=== PATIENT | male | born 1965 | race Hispanic/Latino ===

== ENCOUNTER 2019-07-01 19:03 | Emergency (ER) | payer OTHER ==
[2019-07-01 19:19] LABS: BASOPHILS % (AUTO) 0.8 % (0.0-5.0); EOSINOPHILS % (AUTO) 2.5 % (0.0-8.0); HEMATOCRIT 41.7 % (42-54); MEAN CORPUSCULAR HEMOGLOBIN 32.9 pg (27.0-33.0); MEAN CORPUSCULAR HGB CONC 34.3 g/dL (32.0-36.0); MEAN CORPUSCULAR VOLUME 95.9 fL (79-99); MONOCYTES % (AUTO) 11.3 % (3.0-13.0); PLATELET COUNT (AUTO) 230 K/uL (130-400); RED BLOOD CELL COUNT(AUTO) 4.35 MIL/uL (4.50-6.20); RED CELL DISTRIBUTION WIDTH 13.1 % (11.0-15.5)
[2019-07-01 19:27] LABS: INR 0.85 (0.85-1.15); PARTIAL THROMBOPLASTIN TIME 27.7 SEC (26.3-35.5); PROTHROMBIN TIME 9.2 SEC (9.6-11.6)
[2019-07-01 19:30] LABS: CARBON DIOXIDE 26 mmol/L (21-32); CHLORIDE 98 mmol/L (101-111); CREATININE 0.9 mg/dL (0.5-1.5); GLOMERULAR FILTR. RATE CALC 95 mL/min (>60); GLUCOSE,RANDOM 100 mg/dL (70-105); POTASSIUM 3.7 mmol/L (3.5-5.1); SODIUM SERUM 135 mmol/L (136-145); UREA NITROGEN, BLOOD 9 mg/dL (7-18)
[2019-07-01 19:40] LABS: APPEARANCE,URINE Clear (CLEAR); BILIRUBIN,URINE Negative (NEGATIVE); COLOR,URINE Yellow (YELLOW); GLUCOSE, URINE (UA) Negative (NEGATIVE); KETONES,URINE Negative (NEGATIVE); LEUKOCYTE ESTERASE ,URINE Negative (NEGATIVE); NITRATE,URINE Negative (NEGATIVE); OCCULT BLOOD,URINE Negative (NEGATIVE); PROTEIN,URINE Negative (NEGATIVE); UROBILINOGEN,URINE 0.2 mg/dL (0.2-1.0)
[2019-07-01 19:41] LABS: ALANINE AMINOTRANSFERASE 108 U/L (12-78); ALBUMIN 4.2 g/dL (3.5-5.0); AMMONIA < 3 umol/L (11-32); ASPARTATE AMINOTRANSFERASE 106 U/L (10-37); BILIRUBIN,TOTAL 0.2 mg/dL (0.2-1.0); TOTAL PROTEIN, SERUM 7.7 g/dL (6.0-8.3)
[2019-07-01 19:44] LABS: ALCOHOL, BLOOD 322 mg/dL (0-10); CREATINE KINASE, TOTAL 539 U/L (21-232)
[2019-07-01 19:48] LABS: AMPHET/METH SCREEN,URINE NEGATIVE (NEGATIVE); BARBITURATE SCREEN, URINE NEGATIVE (NEGATIVE); BENZODIAZEPINES SCREEN,URINE NEGATIVE (NEGATIVE); CANNABINOID SCREEN,URINE NEGATIVE (NEGATIVE); COCAINE SCREEN,URINE NEGATIVE (NEGATIVE); OPIATE SCREEN,URINE NEGATIVE (NEGATIVE); PHENCYCLIDINE SCREEN,URINE NEGATIVE (NEGATIVE)
== END 2019-07-01 20:01 | disposition left against medical advice (07) ==
LOC: EDH 19:03
DX: G45.9 Transient cerebral ischemic attack, unspecified (principal); F10.10 Alcohol abuse, uncomplicated; R03.0 Elevated blood-pressure reading, without diagnosis of hypertension; Z72.0 Tobacco use; Z79.899 Other long term (current) drug therapy
CPT/HCPCS: 36415; 70450; 71045; 80053; 80305; 81003; 82140; 82550; 83721; 84484; 85025; 85610; 85730; 93005; 99291; G0480

== ENCOUNTER 2021-05-31 09:52 | Inpatient (IN) | payer OTHER ==
[~2021-05-31] VITALS: Ht 170.2 cm; Wt 80.6 kg
[2021-05-31 10:15] LABS: BASOPHILS % (AUTO) 0.3 % (0.0-5.0); EOSINOPHILS % (AUTO) 0.3 % (0.0-8.0); HEMATOCRIT 39.5 % (42-54); LYMPHOCYTES % (AUTO) 9.9 % (21.0-51.0); MEAN CORPUSCULAR HEMOGLOBIN 34.3 pg (27.0-33.0); MEAN CORPUSCULAR HGB CONC 37.5 g/dL (32.0-36.0); MEAN CORPUSCULAR VOLUME 91.6 fL (79-99); MONOCYTES % (AUTO) 5.1 % (3.0-13.0); NEUTROPHILS % (AUTO) 83.7 % (40.0-77.0); PLATELET COUNT (AUTO) 280 K/uL (130-400); RED BLOOD CELL COUNT(AUTO) 4.31 MIL/uL (4.50-6.20); RED CELL DISTRIBUTION WIDTH 12.4 % (11.0-15.5); WHITE BLOOD COUNT (AUTO) 14.9 K/uL (4.8-10.8)
[2021-05-31 10:27] LABS: POTASSIUM 4.7 mmol/L (3.5-5.1)
[2021-05-31 10:28] LABS: INR 0.94 (0.85-1.15); PROTHROMBIN TIME 10.3 SEC (9.6-11.6)
[2021-05-31 10:29] LABS: PARTIAL THROMBOPLASTIN TIME 26.7 SEC (26.3-35.5)
[2021-05-31 10:32] LABS: ALBUMIN 2.7 g/dL (3.5-5.0); BILIRUBIN,TOTAL 1.3 mg/dL (0.2-1.0)
[2021-05-31] MEDS ORDERED: ONDANSETRON 4MG INJ IVP SCH (11:00)
[2021-05-31] MEDS ORDERED: MORPHINE 4 MG SYG IVP SCH (11:00)
[2021-05-31] MEDS ORDERED: 0.9%NACL 1000ML 1,000 ML IV SCH ×4 (11:00→20:30)
[2021-05-31 11:59] LABS: CREATININE 0.8 mg/dL (0.5-1.5); TOTAL PROTEIN, SERUM 8.2 g/dL (6.0-8.3)
[2021-05-31] MEDS ORDERED: KETOROLAC 30MG VIAL (30MG/ML) IVP ONE (12:30)
[2021-05-31] MEDS ORDERED: LACTATED RINGERS 1000ML 1,000 ML IV SCH (14:00)
[2021-05-31] MEDS: ZOSYN 3.375GM +NS 50ML IV SCH ×2 (14:14→21:37)
[2021-05-31 14:43] LABS: THYROID STIMULATING HORMONE 1.32 uIU/mL (0.36-3.74)
[2021-05-31 14:44] LABS: ALCOHOL, BLOOD < 3 mg/dL (0-10)
[2021-05-31 15:58] LABS: CHOLESTEROL 391 mg/dL (<200); HDL CHOLESTEROL 26 mg/dL (29-71); LDL DIRECT 100 mg/dL (0-99)
[2021-05-31 16:29] LABS: TRIGLYCERIDES 2965 mg/dL (30-200)
[2021-05-31] MEDS ORDERED: MORPHINE 2 MG SYG IVP PRN ×2 (16:30→19:00)
[2021-05-31] MEDS ORDERED: KETOROLAC 15MG/ML VIAL (15MG/ML) IV PRN (16:30)
[2021-05-31 17:03] LABS: HEMATOCRIT 37.2 % (42-54)
[2021-05-31 17:50] LABS: CREATININE 0.8 mg/dL (0.5-1.5); POTASSIUM 4.1 mmol/L (3.5-5.1)
[2021-05-31] MEDS ORDERED: POTASSIUM CHLORIDE 10% ELIXIR 20 MEQ/15 ML UDCUP PO PRN (18:30)
[2021-05-31] MEDS ORDERED: KCL 20 MEQ ERTAB PO PRN (18:30)
[2021-05-31] MEDS ORDERED: PHARMACY COMMUNICATION MISC SCH ×2 (18:30→19:00)
[2021-05-31] MEDS ORDERED: [UNRECOGNIZED DRUG - OTHER] IV SCH ×2 (18:30)
[2021-05-31] MEDS ORDERED: DEXTROSE 5 % AND 0.9 % NACL 1,000 ML IV SCH (18:30)
[2021-05-31] MEDS ORDERED: SODIUM CHLORIDE IV SCH ×2 (18:30)
[2021-05-31] MEDS ORDERED: INSULIN REGULAR, HUMAN 3ML 100 UNIT in 0.9%NACL 100ML 99 ML IV PRN ×2 (19:00)
[2021-05-31] MEDS ORDERED: HYDRALAZINE 20MG/ML VIAL IV PRN (19:00)
[2021-05-31] MEDS ORDERED: DOCUSATE SODIUM 100 MG CAP PO PRN ×2 (19:00)
[2021-05-31] MEDS ORDERED: ACETAMINOPHEN 650 MG SUPPOSITORY RC PRN (19:00)
[2021-05-31] MEDS ORDERED: ACETAMINOPHEN 325 MG TAB PO PRN (19:00)
[2021-05-31] MEDS ORDERED: LACTULOSE 20 GM/30 ML UDCUP PO PRN (19:00)
[2021-05-31] MEDS ORDERED: ALBUTEROL 0.083% 2.5 MG/3 ML INH IH PRN (19:00)
[2021-05-31] MEDS ORDERED: ONDANSETRON 4MG INJ IVP PRN (19:00)
[2021-05-31] MEDS ORDERED: GLUCAGON 1MG KIT 1 MG ML IM PRN (19:00)
[2021-05-31 20:10] LABS: CREATININE 0.8 mg/dL (0.5-1.5); POTASSIUM 3.8 mmol/L (3.5-5.1)
[2021-05-31] MEDS ORDERED: POTASSIUM CHLORIDE 10MEQ/100ML 100 ML IV PRN (20:30)
[2021-05-31] MEDS ORDERED: DEXTROSE 5 %-0.45 % NACL 1,000 ML IV PRN (20:30)
[2021-05-31] MEDS ORDERED: INSULIN REGULAR, HUMAN 3ML 100 UNIT in 0.9%NACL 100ML 99 ML IV SCH ×2 (20:30)
[2021-05-31] MEDS ORDERED: NIACIN 500 MG SRTAB PO SCH (21:00)
[2021-05-31] MEDS ORDERED: SODIUM CL 4MEQ/ML 30ML 154 MEQ in DEXTROSE 10%-WATER 961.5 ML IV SCH (21:00)
[2021-05-31] MEDS ORDERED: 0.9%NACL 50ML 50 ML IV ONE (21:29)
[2021-05-31] MEDS: PANTOPRAZOLE 40 MG/VIAL IVP SCH (21:37)
[2021-05-31] MEDS: ATORVASTATIN 40 MG TABLET PO SCH (21:37)
[2021-06-01] VITALS (29 sets, daily range): BP systolic 118–150; BP diastolic 61–86
[2021-06-01] MEDS: POTASSIUM CHLORIDE 20MEQ/100ML 100 ML IV PRN ×2 (00:26→03:08)
[2021-06-01 00:37] LABS: CREATININE 0.9 mg/dL (0.5-1.5); MAGNESIUM 2.3 mg/dL (1.80-2.40); POTASSIUM 3.1 mmol/L (3.5-5.1)
[2021-06-01] MEDS: ZOSYN 3.375GM +NS 50ML IV SCH ×3 (06:08→22:00)
[2021-06-01 06:16] LABS: HEMATOCRIT 38.2 % (42-54); MEAN CORPUSCULAR HEMOGLOBIN 32.3 pg (27.0-33.0); MEAN CORPUSCULAR HGB CONC 34.3 g/dL (32.0-36.0); MEAN CORPUSCULAR VOLUME 94.1 fL (79-99); RED BLOOD CELL COUNT(AUTO) 4.06 MIL/uL (4.50-6.20); RED CELL DISTRIBUTION WIDTH 12.8 % (11.0-15.5); WHITE BLOOD COUNT (AUTO) 12.2 K/uL (4.8-10.8)
[2021-06-01 06:38] LABS: INR 0.97 (0.85-1.15); PROTHROMBIN TIME 10.6 SEC (9.6-11.6)
[2021-06-01 06:40] LABS: CREATININE 0.9 mg/dL (0.5-1.5); MAGNESIUM 1.9 mg/dL (1.80-2.40); PHOSPHORUS 2.9 mg/dL (2.5-4.9); POTASSIUM 3.6 mmol/L (3.5-5.1)
[2021-06-01] MEDS ORDERED: GEMFIBROZIL 600 MG TABLET PO SCH (07:30)
[2021-06-01] MEDS ORDERED: MAGNESIUM 2GM PREMIX 50ML 50 ML IV ONE (07:50)
[2021-06-01] MEDS ORDERED: ENOXAPARIN SODIUM 40 MG/0.4 ML SYRINGE SQ SCH (09:00)
[2021-06-01] MEDS ORDERED: FISH OIL 1000 MG/CAP PO SCH (09:00)
[2021-06-01] MEDS: CYANOCOBALAMIN (VITAMIN B-12) 100 MCG TABLET PO SCH (09:00)
[2021-06-01] MEDS: FOLIC ACID 1 MG TABLET PO SCH (09:00)
[2021-06-01 09:13] LABS: ALBUMIN 2.5 g/dL (3.5-5.0); BILIRUBIN,DIRECT 0.1 mg/dL (0.0-0.3); BILIRUBIN,TOTAL 0.5 mg/dL (0.2-1.0); TOTAL PROTEIN, SERUM 6.8 g/dL (6.0-8.3)
[2021-06-01] MEDS ORDERED: MAGNESIUM OXIDE 400 MG TABLET PO SCH (09:30)
[2021-06-01] MEDS ORDERED: KCL 20 MEQ ERTAB PO SCH (09:30)
[2021-06-01] MEDS ORDERED: CHLORDIAZEPOXIDE HCL 25 MG CAP PO PRN (11:30)
[2021-06-01] MEDS ORDERED: THIAMINE HCL 100 MG/ML 2ML VIAL IVP SCH (11:30)
[2021-06-01] MEDS ORDERED: PHARMACY COMMUNICATION MISC PRN (11:30)
[2021-06-01] MEDS ORDERED: LORAZEPAM 2 MG/ML 1 ML VIAL IVP PRN (11:30)
[2021-06-01 12:10] LABS: CREATININE 0.8 mg/dL (0.5-1.5); MAGNESIUM 2.7 mg/dL (1.80-2.40); POTASSIUM 3.3 mmol/L (3.5-5.1)
[2021-06-01 14:15] LABS: CHOLESTEROL 259 mg/dL (<200); HDL CHOLESTEROL 39 mg/dL (29-71); LDL DIRECT 74 mg/dL (0-99); TRIGLYCERIDES 519 mg/dL (30-200)
[2021-06-01 18:07] LABS: MAGNESIUM 2.5 mg/dL (1.80-2.40)
[2021-06-01] MEDS ORDERED: 0.9%NACL 50ML 50 ML IV ONE (19:25)
[2021-06-01] MEDS: PANTOPRAZOLE 40 MG/VIAL IVP SCH ×2 (19:46→21:00)
[2021-06-01] MEDS: FISH OIL 1000 MG/CAP PO SCH ×2 (19:47→21:00)
[2021-06-01] MEDS: ATORVASTATIN 40 MG TABLET PO SCH (20:48)
[2021-06-01 22:19] LABS: APPEARANCE,URINE Clear (CLEAR); BILIRUBIN,URINE Negative (NEGATIVE); COLOR,URINE Yellow (YELLOW); GLUCOSE, URINE (UA) Negative (NEGATIVE); KETONES,URINE >=80 mg/dL (NEGATIVE); LEUKOCYTE ESTERASE ,URINE Negative (NEGATIVE); NITRATE,URINE Negative (NEGATIVE); OCCULT BLOOD,URINE Negative (NEGATIVE); PROTEIN,URINE Negative (NEGATIVE); UROBILINOGEN,URINE 0.2 mg/dL (0.2-1.0)
[2021-06-01 22:25] LABS: AMPHET/METH SCREEN,URINE NEGATIVE (NEGATIVE); BARBITURATE SCREEN, URINE NEGATIVE (NEGATIVE); BENZODIAZEPINES SCREEN,URINE NEGATIVE (NEGATIVE); CANNABINOID SCREEN,URINE NEGATIVE (NEGATIVE); COCAINE SCREEN,URINE NEGATIVE (NEGATIVE); OPIATE SCREEN,URINE NEGATIVE (NEGATIVE); PHENCYCLIDINE SCREEN,URINE NEGATIVE (NEGATIVE); SODIUM,URINE RANDOM 209 mmol/l (40-220)
[2021-06-02] VITALS (13 sets, daily range): BP systolic 118–165; BP diastolic 62–85
[2021-06-02] MEDS: ZOSYN 3.375GM +NS 50ML IV SCH ×3 (06:00→22:18)
[2021-06-02 06:06] LABS: BASOPHILS % (AUTO) 0.5 % (0.0-5.0); EOSINOPHILS % (AUTO) 2.9 % (0.0-8.0); HEMATOCRIT 38.9 % (42-54); LYMPHOCYTES % (AUTO) 23.1 % (21.0-51.0); MEAN CORPUSCULAR HEMOGLOBIN 31.8 pg (27.0-33.0); MEAN CORPUSCULAR HGB CONC 32.6 g/dL (32.0-36.0); MEAN CORPUSCULAR VOLUME 97.5 fL (79-99); MONOCYTES % (AUTO) 6.8 % (3.0-13.0); NEUTROPHILS % (AUTO) 66.2 % (40.0-77.0); PLATELET COUNT (AUTO) 218 K/uL (130-400); RED BLOOD CELL COUNT(AUTO) 3.99 MIL/uL (4.50-6.20); RED CELL DISTRIBUTION WIDTH 12.9 % (11.0-15.5); WHITE BLOOD COUNT (AUTO) 10.1 K/uL (4.8-10.8)
[2021-06-02 06:15] LABS: ALBUMIN 2.5 g/dL (3.5-5.0); BILIRUBIN,TOTAL 0.5 mg/dL (0.2-1.0); CREATININE 0.9 mg/dL (0.5-1.5); POTASSIUM 3.8 mmol/L (3.5-5.1); TOTAL PROTEIN, SERUM 6.9 g/dL (6.0-8.3)
[2021-06-02] MEDS: PANTOPRAZOLE 40 MG/VIAL IVP SCH ×2 (08:25→20:00)
[2021-06-02] MEDS: FOLIC ACID 1 MG TABLET PO SCH (08:25)
[2021-06-02] MEDS: FISH OIL 1000 MG/CAP PO SCH ×2 (08:25→20:02)
[2021-06-02] MEDS: CYANOCOBALAMIN (VITAMIN B-12) 100 MCG TABLET PO SCH (08:26)
[2021-06-02] MEDS: LACTATED RINGERS 1000ML 1,000 ML IV SCH ×2 (09:19→16:17)
[2021-06-02] MEDS: ATORVASTATIN 40 MG TABLET PO SCH (20:00)
[2021-06-03 04:29] VITALS: BP 131/73
[2021-06-03 05:03] LABS: BASOPHILS % (AUTO) 0.6 % (0.0-5.0); EOSINOPHILS % (AUTO) 4.2 % (0.0-8.0); HEMATOCRIT 38.2 % (42-54); LYMPHOCYTES % (AUTO) 32.4 % (21.0-51.0); MEAN CORPUSCULAR HEMOGLOBIN 32.8 pg (27.0-33.0); MEAN CORPUSCULAR HGB CONC 34.6 g/dL (32.0-36.0); MEAN CORPUSCULAR VOLUME 94.8 fL (79-99); MONOCYTES % (AUTO) 9.6 % (3.0-13.0); NEUTROPHILS % (AUTO) 52.8 % (40.0-77.0); PLATELET COUNT (AUTO) 247 K/uL (130-400); RED BLOOD CELL COUNT(AUTO) 4.03 MIL/uL (4.50-6.20); RED CELL DISTRIBUTION WIDTH 12.7 % (11.0-15.5); WHITE BLOOD COUNT (AUTO) 6.7 K/uL (4.8-10.8)
[2021-06-03 05:17] LABS: POTASSIUM 3.4 mmol/L (3.5-5.1)
[2021-06-03] MEDS: ZOSYN 3.375GM +NS 50ML IV SCH (05:36)
[2021-06-03] MEDS: CYANOCOBALAMIN (VITAMIN B-12) 100 MCG TABLET PO SCH (08:40)
[2021-06-03] MEDS: FISH OIL 1000 MG/CAP PO SCH (08:41)
[2021-06-03] MEDS: PANTOPRAZOLE 40 MG/VIAL IVP SCH (08:41)
[2021-06-03] MEDS: FOLIC ACID 1 MG TABLET PO SCH (08:43)
[2021-06-03 09:06] VITALS: BP 127/75
[2021-06-03] MEDS ORDERED: FENO145T PO (09:11)
[2021-06-03] MEDS ORDERED: OMEG-148 PO (09:11)
[2021-06-03] MEDS ORDERED: ATOR40TA69 PO (09:11)
== END 2021-06-03 13:04 | disposition home or self-care (01) | DRG 439 ==
LOC: EDH 09:52 → EDHIP 09:53 → 2CH 23:45 → 3AH 06-02 22:22
PROVIDERS: ADMIT Internal Medicine; ATTEND Internal Medicine
DX: K85.90 Acute pancreatitis without necrosis or infection, unspecified (principal); E87.1 Hypo-osmolality and hyponatremia; E78.1 Pure hyperglyceridemia; E11.9 Type 2 diabetes mellitus without complications; Z79.899 Other long term (current) drug therapy; K29.80 Duodenitis without bleeding; E88.09 Other disorders of plasma-protein metabolism, not elsewhere classified; F17.210 Nicotine dependence, cigarettes, uncomplicated; E78.00 Pure hypercholesterolemia, unspecified; R20.2 Paresthesia of skin; R74.01 Elevation of levels of liver transaminase levels; F12.90 Cannabis use, unspecified, uncomplicated
CPT/HCPCS: 36415; 70450; 71045; 74177; 74181; 76705; 80048; 80053; 80061; 80076; 80305; 81003; 82140; 82150; 82270; 82550; 82607; 82746; 82948; 83036; 83605; 83615; 83690; 83735; 83930; 84100; 84145; 84300; 84443; 84484; 85014; 85018; 85025; 85027; 85610; 85730; 86850; 86900; 86901; 87338; 93005; C9113; G0378; J1815; J1885; J2270; J2405; J2543; J3411; J3475; J3480; J3490; J7030; J7042; J7120; J7131

== ENCOUNTER 2021-11-03 12:55 | Emergency (ER) | payer OTHER ==
[~2021-11-03] VITALS: Ht 170.2 cm; Wt 86.2 kg
[~2021-11-03 12:55] MED LIST: ATOR40TA69 PO; FENO145T PO; OMEG-148 PO
[2021-11-03 13:40] LABS: BASOPHILS % (AUTO) 0.9 % (0.0-5.0); EOSINOPHILS % (AUTO) 0.7 % (0.0-8.0); HEMATOCRIT 44.5 % (42-54); LYMPHOCYTES % (AUTO) 25.8 % (21.0-51.0); MEAN CORPUSCULAR HGB CONC 35.3 g/dL (32.0-36.0); MEAN CORPUSCULAR VOLUME 93.5 fL (79-99); MONOCYTES % (AUTO) 10.6 % (3.0-13.0); NEUTROPHILS % (AUTO) 61.7 % (40.0-77.0); PLATELET COUNT (AUTO) 283 K/uL (130-400); RED BLOOD CELL COUNT(AUTO) 4.76 MIL/uL (4.50-6.20); RED CELL DISTRIBUTION WIDTH 13.2 % (11.0-15.5); WHITE BLOOD COUNT (AUTO) 6.9 K/uL (4.8-10.8)
[2021-11-03 13:41] LABS: APPEARANCE,URINE CLEAR (CLEAR); BILIRUBIN,URINE NEGATIVE (NEGATIVE); COLOR,URINE YELLOW (YELLOW); GLUCOSE, URINE (UA) NEGATIVE (NEGATIVE); KETONES,URINE NEGATIVE (NEGATIVE); LEUKOCYTE ESTERASE ,URINE NEGATIVE Leu/uL (NEGATIVE); NITRATE,URINE NEGATIVE (NEGATIVE); OCCULT BLOOD,URINE TRACE-INTACT (NEGATIVE); PROTEIN,URINE NEGATIVE (NEGATIVE); UROBILINOGEN,URINE 0.2 mg/dL (0.2-1.0)
[2021-11-03 13:47] LABS: CREATININE 1.2 mg/dL (0.5-1.5); POTASSIUM 3.9 mmol/L (3.5-5.1)
[2021-11-03 13:56] LABS: ALBUMIN 3.9 g/dL (3.5-5.0); TOTAL PROTEIN, SERUM 8.1 g/dL (6.0-8.3)
[2021-11-03 14:07] LABS: BACTERIA,URINE Rare /HPF (None Seen); RBC,URINE None Seen /HPF (0-1); WBC,URINE None Seen /HPF (0-1)
[2021-11-03] MEDS ORDERED: ONDANSETRON 4MG INJ ONE (14:51)
[2021-11-03] MEDS ORDERED: 0.9%NACL 1000ML 1,000 ML IV ONE ×2 (14:52→15:00)
[2021-11-03] MEDS ORDERED: MORPHINE 4 MG SYG ONE (14:52)
[2021-11-03] MEDS ORDERED: ONDANSETRON 4MG INJ IVP ONE (15:00)
[2021-11-03] MEDS ORDERED: MORPHINE 4 MG SYG IVP ONE (15:00)
[2021-11-03] MEDS ORDERED: IOHEXOL 350 MG/ML 100ML INFUS..BTL IV ONE (15:56)
[2021-11-03] MEDS ORDERED: DiphenhydrAMINE HCL 50 MG/ML VIAL ONE (15:57)
[2021-11-03 16:53] VITALS: BP 140/79
== END 2021-11-03 17:03 | disposition home or self-care (01) ==
LOC: EDH 12:55
DX: R10.31 Right lower quadrant pain (principal); R10.33 Periumbilical pain; L29.9 Pruritus, unspecified
CPT/HCPCS: 99285; 74177; 96374; 96361; 96375; 84484; 80053; 83690; 85025; 81001; 36415; 93005; J7030; J2405; J2270; Q9967; J1200

== ENCOUNTER 2022-08-14 18:10 | Emergency (ER) | payer OTHER, SELFPAY ==
[~2022-08-14] VITALS: Ht 165.1 cm; Wt 74.8 kg
[2022-08-14 18:45] LABS: BASOPHILS % (AUTO) 0.9 % (0.0-5.0); EOSINOPHILS % (AUTO) 2.1 % (0.0-8.0); HEMATOCRIT 39.9 % (42-54); LYMPHOCYTES % (AUTO) 50.8 % (21.0-51.0); MEAN CORPUSCULAR HEMOGLOBIN 33.6 pg (27.0-33.0); MEAN CORPUSCULAR HGB CONC 36.1 g/dL (32.0-36.0); MEAN CORPUSCULAR VOLUME 93.2 fL (79-99); MONOCYTES % (AUTO) 7.4 % (3.0-13.0); NEUTROPHILS % (AUTO) 38.6 % (40.0-77.0); PLATELET COUNT (AUTO) 156 K/uL (130-400); RED BLOOD CELL COUNT(AUTO) 4.28 MIL/uL (4.50-6.20); WHITE BLOOD COUNT (AUTO) 4.4 K/uL (4.8-10.8)
[2022-08-14 19:26] LABS: POTASSIUM 3.3 mmol/L (3.5-5.1)
[2022-08-14 19:30] LABS: ALBUMIN 3.1 g/dL (3.5-5.0)
[2022-08-14] MEDS ORDERED: IPRATROPIUM/ALBUTEROL SULFATE 3 ML SOLUTION IH ONE (19:30)
[2022-08-14 20:00] LABS: B-TYPE NATRIURETIC PEPTIDE 17 pg/mL (0-100)
[2022-08-14 20:32] LABS: TOTAL PROTEIN, SERUM 7.4 g/dL (6.0-8.3)
[2022-08-14 21:24] LABS: ABG BASE EXCESS -5.9 mmol/L (-2.0-3.0); ABG HCO3 18.9 mmol/L (21.0-28.0); ABG OXYGEN SATURATION 96.5 % (95.0-99.0); ABG PCO2 35 mmHg (35-48)
[2022-08-14 21:30] VITALS: BP 145/60
[2022-08-14] MEDS ORDERED: ALBU90AE2 IH (21:37)
== END 2022-08-14 21:44 | disposition home or self-care (01) ==
LOC: EDH 18:10
DX: F10.129 Alcohol abuse with intoxication, unspecified (principal); F17.200 Nicotine dependence, unspecified, uncomplicated; F41.9 Anxiety disorder, unspecified; Z79.899 Other long term (current) drug therapy
CPT/HCPCS: 36415; 36600; 71045; 80053; 82140; 82435; 82803; 82947; 83605; 83735; 83880; 84132; 84295; 84484; 85018; 85025; 93005; 94640

== ENCOUNTER 2022-08-22 10:14 | Inpatient (IN) | payer OTHER ==
[~2022-08-22] VITALS: Ht 170.2 cm; Wt 79.8 kg
[~2022-08-22 10:14] MED LIST changes: +ALBU90AE2 IH
[2022-08-22 10:43] LABS: BASOPHILS % (AUTO) 0.5 % (0.0-5.0); EOSINOPHILS % (AUTO) 0.2 % (0.0-8.0); HEMATOCRIT 43.4 % (42-54); LYMPHOCYTES % (AUTO) 12.3 % (21.0-51.0); MEAN CORPUSCULAR HEMOGLOBIN 35.9 pg (27.0-33.0); MEAN CORPUSCULAR HGB CONC 37.6 g/dL (32.0-36.0); MEAN CORPUSCULAR VOLUME 95.6 fL (79-99); MONOCYTES % (AUTO) 5.3 % (3.0-13.0); NEUTROPHILS % (AUTO) 81.3 % (40.0-77.0); PLATELET COUNT (AUTO) 172 K/uL (130-400); RED BLOOD CELL COUNT(AUTO) 4.54 MIL/uL (4.50-6.20); WHITE BLOOD COUNT (AUTO) 12.4 K/uL (4.8-10.8)
[2022-08-22 11:50] LABS: APPEARANCE,URINE CLEAR (CLEAR); BILIRUBIN,URINE NEGATIVE (NEGATIVE); COLOR,URINE YELLOW (YELLOW); GLUCOSE, URINE (UA) NEGATIVE (NEGATIVE); KETONES,URINE NEGATIVE (NEGATIVE); LEUKOCYTE ESTERASE ,URINE NEGATIVE Leu/uL (NEGATIVE); NITRATE,URINE NEGATIVE (NEGATIVE); OCCULT BLOOD,URINE NEGATIVE (NEGATIVE); PH,URINE 5.5 (5.0-8.0); PROTEIN,URINE 10 mg/dL (NEGATIVE); UROBILINOGEN,URINE 0.2 mg/dL (0.2-1.0)
[2022-08-22 11:58] LABS: ALBUMIN 3.1 g/dL (3.5-5.0); POTASSIUM 4.1 mmol/L (3.5-5.1); TOTAL PROTEIN, SERUM 8.1 g/dL (6.0-8.3)
[2022-08-22 12:23] LABS: MUCUS,URINE RARE LPF (None Seen); RBC,URINE 0-1 /HPF (0-1); SQUAMOUS EPITHELIAL CELL,UR RARE /HPF (0-2)
[2022-08-22] MEDS ORDERED: MORPHINE 4 MG SYG IVP ONE (12:30)
[2022-08-22] MEDS ORDERED: ONDANSETRON 4MG INJ IVP ONE (12:30)
[2022-08-22] MEDS ORDERED: 0.9%NACL 1000ML 1,000 ML IV ONE (12:30)
[2022-08-22 13:23] LABS: MAGNESIUM 2.1 mg/dL (1.80-2.40)
[2022-08-22] MEDS ORDERED: KETOROLAC 15MG/ML VIAL (15MG/ML) IV PRN (14:00)
[2022-08-22] MEDS ORDERED: 0.9%NACL 1000ML 1,000 ML IV SCH (14:00)
[2022-08-22 14:36] LABS: PARTIAL THROMBOPLASTIN TIME 29.8 SEC (26.3-35.5)
[2022-08-22 14:44] LABS: INR 0.93 (0.85-1.15)
[2022-08-22 14:45] LABS: PROTHROMBIN TIME 10.5 SEC (9.6-11.6)
[2022-08-22 14:46] LABS: HDL CHOLESTEROL 42 mg/dL (29-71); LDL DIRECT 128 mg/dL (0-99)
[2022-08-22 15:00] LABS: CHOLESTEROL 555 mg/dL (<200); TRIGLYCERIDES 4981 mg/dL (30-200)
[2022-08-22] MEDS ORDERED: POTASSIUM CHLORIDE 20MEQ/100ML 100 ML IV PRN (15:30)
[2022-08-22] MEDS ORDERED: INSULIN REGULAR, HUMAN 3ML 100 UNIT in 0.9%NACL 100ML 99 ML IV PRN ×2 (15:30)
[2022-08-22] MEDS: DEXTROSE 5 % AND 0.9 % NACL 1,000 ML IV SCH ×2 (15:53→23:15)
[2022-08-22 16:11] LABS: POTASSIUM 3.7 mmol/L (3.5-5.1); THYROID STIMULATING HORMONE 1.57 uIU/mL (0.36-3.74)
[2022-08-22 16:28] LABS: URIC ACID 6.2 mg/dL (2.6-7.2)
[2022-08-22 16:49] LABS: CREATININE 0.9 mg/dL (0.5-1.5)
[2022-08-22 17:21] LABS: AMPHET/METH SCREEN,URINE NEGATIVE (NEGATIVE); BARBITURATE SCREEN, URINE NEGATIVE (NEGATIVE); BENZODIAZEPINES SCREEN,URINE NEGATIVE (NEGATIVE); CANNABINOID SCREEN,URINE NEGATIVE (NEGATIVE); COCAINE SCREEN,URINE NEGATIVE (NEGATIVE); CREATININE,URINE RANDOM 288 mg/dL (30-135); OPIATE SCREEN,URINE NEGATIVE (NEGATIVE); PHENCYCLIDINE SCREEN,URINE NEGATIVE (NEGATIVE); SODIUM,URINE RANDOM 43 mmol/l (40-220)
[2022-08-22] MEDS ORDERED: LORAZEPAM 2 MG/ML 1 ML VIAL IVP PRN (18:00)
[2022-08-22] MEDS ORDERED: INSULIN HUMULIN R 100 UNIT/ML 3ML SQ SCH (18:00)
[2022-08-22] MEDS ORDERED: CHLORDIAZEPOXIDE HCL 25 MG CAP PO PRN (18:00)
[2022-08-22] MEDS ORDERED: PHARMACY COMMUNICATION MISC PRN (18:00)
[2022-08-22] MEDS: MORPHINE 2 MG SYG IVP PRN (18:57)
[2022-08-22 20:13] LABS: CREATININE 0.8 mg/dL (0.5-1.5); POTASSIUM 3.3 mmol/L (3.5-5.1)
[2022-08-22 20:34] LABS: HEMOGLOBIN A1C 5.3 % (4.0-6.0)
[2022-08-22] MEDS: ZOSYN 3.375GM +NS 50ML IVPB SCH (20:51)
[2022-08-22] MEDS ORDERED: 0.9%NACL 50ML IV SCH (21:00)
[2022-08-23 03:18] LABS: BASOPHILS % (AUTO) 0.2 % (0.0-5.0); EOSINOPHILS % (AUTO) 1.4 % (0.0-8.0); LYMPHOCYTES % (AUTO) 15.6 % (21.0-51.0); MEAN CORPUSCULAR HEMOGLOBIN 33.3 pg (27.0-33.0); MEAN CORPUSCULAR HGB CONC 34.7 g/dL (32.0-36.0); MONOCYTES % (AUTO) 6.3 % (3.0-13.0); NEUTROPHILS % (AUTO) 75.9 % (40.0-77.0); PLATELET COUNT (AUTO) 139 K/uL (130-400); RED BLOOD CELL COUNT(AUTO) 3.96 MIL/uL (4.50-6.20); WHITE BLOOD COUNT (AUTO) 8.7 K/uL (4.8-10.8)
[2022-08-23 03:45] LABS: CREATININE 0.8 mg/dL (0.5-1.5)
[2022-08-23] MEDS: ZOSYN 3.375GM +NS 50ML IVPB SCH ×3 (04:49→20:33)
[2022-08-23] MEDS: DEXTROSE 5 % AND 0.9 % NACL 1,000 ML IV SCH (05:15)
[2022-08-23] MEDS ORDERED: DEXTROSE 50%-WATER 50 ML DISP.SYRIN IV PRN ×2 (05:30→13:00)
[2022-08-23] MEDS ORDERED: GLUCAGON 1MG KIT 1 MG ML IM PRN ×2 (05:30→13:00)
[2022-08-23] MEDS ORDERED: D5 NS WITH 20 mEq KCl 1000ML IV SCH (08:00)
[2022-08-23 08:33] LABS: CREATININE 0.7 mg/dL (0.5-1.5); POTASSIUM 3.6 mmol/L (3.5-5.1)
[2022-08-23] MEDS ORDERED: MORPHINE 4 MG SYG IVP PRN (09:00)
[2022-08-23] MEDS: FENOFIBRATE NANOCRYSTALLIZED 145 MG TAB PO SCH (09:21)
[2022-08-23] MEDS: FOLIC ACID 5 MG/ML VIAL IV SCH (09:21)
[2022-08-23] MEDS: ENOXAPARIN SODIUM 40 MG/0.4 ML SYRINGE SQ SCH (09:23)
[2022-08-23] MEDS: THIAMINE HCL 100 MG/ML 2ML VIAL IVP SCH (09:23)
[2022-08-23] MEDS ORDERED: KCL 20 MEQ ERTAB PO ONE (10:00)
[2022-08-23] MEDS ORDERED: D5 NS WITH 20 mEq KCl 1000ML 1,000 ML IV SCH (10:00)
[2022-08-23] MEDS: METOCLOPRAMIDE 10 MG/2 ML VIAL IVP SCH ×2 (12:12→17:11)
[2022-08-23 12:30] LABS: CREATININE 0.7 mg/dL (0.5-1.5); POTASSIUM 3.8 mmol/L (3.5-5.1)
[2022-08-23] MEDS: 0.9%NACL 1000ML 1,000 ML IV SCH ×2 (13:00→20:39)
[2022-08-23] MEDS: INSULIN HUMULIN R 100 UNIT/ML 3ML SQ SCH ×2 (16:30→20:37)
[2022-08-23 16:46] LABS: CREATININE 0.8 mg/dL (0.5-1.5); POTASSIUM 3.9 mmol/L (3.5-5.1)
[2022-08-23 17:45] VITALS: BP 151/86
[2022-08-23 19:58] VITALS: BP 162/99
[2022-08-23] MEDS ORDERED: ATORVASTATIN 40 MG TABLET PO SCH ×2 (21:00)
[2022-08-23 23:29] VITALS: BP 150/88
[2022-08-24] MEDS: 0.9%NACL 1000ML 1,000 ML IV SCH ×3 (02:20→15:40)
[2022-08-24] MEDS: ZOSYN 3.375GM +NS 50ML IVPB SCH ×2 (04:06→12:48)
[2022-08-24] MEDS: MORPHINE 2 MG SYG IVP PRN (04:11)
[2022-08-24 04:12] VITALS: BP 151/75
[2022-08-24 04:21] LABS: BASOPHILS % (AUTO) 0.4 % (0.0-5.0); EOSINOPHILS % (AUTO) 2.1 % (0.0-8.0); HEMATOCRIT 40.5 % (42-54); LYMPHOCYTES % (AUTO) 24.4 % (21.0-51.0); MEAN CORPUSCULAR HEMOGLOBIN 33.3 pg (27.0-33.0); MEAN CORPUSCULAR HGB CONC 33.6 g/dL (32.0-36.0); MEAN CORPUSCULAR VOLUME 99.3 fL (79-99); MONOCYTES % (AUTO) 7.9 % (3.0-13.0); NEUTROPHILS % (AUTO) 64.7 % (40.0-77.0); PLATELET COUNT (AUTO) 149 K/uL (130-400); RED BLOOD CELL COUNT(AUTO) 4.08 MIL/uL (4.50-6.20); RED CELL DISTRIBUTION WIDTH 13.2 % (11.0-15.5); WHITE BLOOD COUNT (AUTO) 7.7 K/uL (4.8-10.8)
[2022-08-24 05:10] LABS: ALBUMIN 2.5 g/dL (3.5-5.0); CREATININE 0.9 mg/dL (0.5-1.5); POTASSIUM 3.4 mmol/L (3.5-5.1)
[2022-08-24] MEDS: INSULIN HUMULIN R 100 UNIT/ML 3ML SQ SCH ×3 (05:21→16:30)
[2022-08-24 07:54] VITALS: BP 149/88
[2022-08-24] MEDS: METOCLOPRAMIDE 10 MG/2 ML VIAL IVP SCH ×2 (08:10→12:48)
[2022-08-24] MEDS: THIAMINE HCL 100 MG/ML 2ML VIAL IVP SCH (08:11)
[2022-08-24] MEDS: FENOFIBRATE NANOCRYSTALLIZED 145 MG TAB PO SCH (08:13)
[2022-08-24] MEDS: ENOXAPARIN SODIUM 40 MG/0.4 ML SYRINGE SQ SCH (08:13)
[2022-08-24] MEDS ORDERED: FISH OIL 1000 MG/CAP PO SCH (09:00)
[2022-08-24] MEDS: FOLIC ACID 5 MG/ML VIAL IV SCH (09:00)
[2022-08-24 11:15] VITALS: BP 149/79
[2022-08-24] MEDS ORDERED: ATOR40TA69 PO (11:33)
[2022-08-24] MEDS ORDERED: OMEG-148 PO (11:33)
[2022-08-24] MEDS ORDERED: IBUP-2077 PO (11:33)
[2022-08-24] MEDS ORDERED: FENO145T PO (11:33)
[2022-08-24 16:00] VITALS: BP 146/83
== END 2022-08-24 18:15 | disposition home or self-care (01) | DRG 439 ==
LOC: EDH 10:14 → EDHIP 10:15 → 3CH 08-23 17:39
PROVIDERS: ADMIT Internal Medicine; ATTEND Internal Medicine
DX: K85.20 Alcohol induced acute pancreatitis without necrosis or infection (principal); E87.1 Hypo-osmolality and hyponatremia; R65.10 Systemic inflammatory response syndrome (SIRS) of non-infectious origin without acute organ dysfunction; E78.00 Pure hypercholesterolemia, unspecified; F10.10 Alcohol abuse, uncomplicated; K70.9 Alcoholic liver disease, unspecified; E78.1 Pure hyperglyceridemia; E86.1 Hypovolemia; K76.0 Fatty (change of) liver, not elsewhere classified; Z91.199 Patient's noncompliance with other medical treatment and regimen due to unspecified reason; Z87.891 Personal history of nicotine dependence; Z79.899 Other long term (current) drug therapy
CPT/HCPCS: 36415; 71045; 74176; 80048; 80053; 80061; 80305; 81001; 82570; 82948; 83036; 83605; 83690; 83735; 83930; 83935; 84300; 84443; 84478; 84484; 84550; 85025; 85610; 85730; 93005; G0378; J1650; J1885; J2270; J2405; J2543; J2765; J3411; J3480; J3490; J7042; J7070

== ENCOUNTER 2024-04-04 11:25 | Inpatient (IN) | payer SELFPAY ==
[~2024-04-04] VITALS: Ht 170.2 cm; Wt 90.7 kg
[~2024-04-04 11:25] MED LIST changes: -ALBU90AE2 IH; +ALBU90AE3 IH; +IBUP-2077 PO
[2024-04-04 12:16] LABS: BASOPHILS # (AUTO) 0.03 K/uL (0.00-0.20); BASOPHILS % (AUTO) 0.3 % (0.0-5.0); EOSINOPHILS # (AUTO) 0.03 K/uL (0.00-0.70); EOSINOPHILS % (AUTO) 0.3 % (0.0-8.0); HEMATOCRIT 41.6 % (42-54); IMMATURE GRANULOCYTE ABSOLUTE 0.06 K/uL (0-1); LYMPHOCYTES # (AUTO) 1.4 K/uL (1.0-4.8); LYMPHOCYTES % (AUTO) 13.7 % (21.0-51.0); MEAN CORPUSCULAR VOLUME 95.6 fL (79-99); MONOCYTES # (AUTO) 0.5 K/uL (0.1-1.0); MONOCYTES % (AUTO) 4.4 % (3.0-13.0); NEUTROPHILS # (AUTO) 8.3 K/uL (1.8-7.7); NEUTROPHILS % (AUTO) 80.7 % (40.0-77.0); PLATELET COUNT (AUTO) 177 K/uL (130-400); RED BLOOD CELL COUNT(AUTO) 4.35 MIL/uL (4.50-6.20); RED CELL DISTRIBUTION WIDTH 12.8 % (11.0-15.5); WHITE BLOOD COUNT (AUTO) 10.2 K/uL (4.8-10.8)
[2024-04-04 12:19] LABS: APPEARANCE,URINE CLEAR (CLEAR); BILIRUBIN,URINE NEGATIVE (NEGATIVE); COLOR,URINE YELLOW (YELLOW); GLUCOSE, URINE (UA) NEGATIVE (NEGATIVE); KETONES,URINE NEGATIVE (NEGATIVE); LEUKOCYTE ESTERASE ,URINE NEGATIVE Leu/uL (NEGATIVE); NITRATE,URINE NEGATIVE (NEGATIVE); OCCULT BLOOD,URINE NEGATIVE (NEGATIVE); PH,URINE 5.5 (5.0-8.0); PROTEIN,URINE 20 mg/dL (NEGATIVE); UROBILINOGEN,URINE 0.2 mg/dL (0.2-1.0)
[2024-04-04 12:22] LABS: ADD UA MICROSCOPIC YES
[2024-04-04 12:23] LABS: AMPHET/METH SCREEN,URINE NEGATIVE (NEGATIVE); BARBITURATE SCREEN, URINE NEGATIVE (NEGATIVE); BENZODIAZEPINES SCREEN,URINE NEGATIVE (NEGATIVE); CANNABINOID SCREEN,URINE NEGATIVE (NEGATIVE); COCAINE SCREEN,URINE POSITIVE (NEGATIVE); OPIATE SCREEN,URINE NEGATIVE (NEGATIVE); PHENCYCLIDINE SCREEN,URINE NEGATIVE (NEGATIVE)
[2024-04-04] MEDS: morPHINE 2 MG SYG IVP STA (12:23)
[2024-04-04] MEDS: ondanSETRON 4MG INJ IVP STA (12:23)
[2024-04-04 12:44] LABS: BACTERIA,URINE None Seen /HPF (None Seen); RBC,URINE 0-1 /HPF (0-1); WBC,URINE 0-1 /HPF (0-1)
--- NOTE | 2024-04-04 12:57 | EKG ---
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
[2024-04-04 13:33] LABS: POTASSIUM 3.4 mmol/L (3.5-5.1)
[2024-04-04 13:34] LABS: BILIRUBIN,DIRECT 0.6 mg/dL (0.0-0.3); BILIRUBIN,TOTAL 0.9 mg/dL (0.2-1.0); TOTAL PROTEIN, SERUM 7.9 g/dL (6.0-8.3)
[2024-04-04 13:51] LABS: BAND NEUTROPHILS % (MANUAL) 1 % (0-2); BASOPHILS % (MANUAL) 1 % (0-2); EOSINOPHILS % (MANUAL) 1 % (1-6); LYMPHOCYTES % (MANUAL) 14 % (22-44); MAN.DIFF COMMENT-IMPRESSION MANUAL DIFFERENTIAL; MONOCYTES % (MANUAL) 5 % (2-9); PLATELET MORPHOLOGY COMMENT ADEQUATE; SEGMENTED NEUTROPHILS % 78 % (40-70); TOTAL CELLS COUNTED 100; WBC MORPHOLOGY TOXIC GRANULATION 2+
[2024-04-04 13:57] LABS: CREATININE 0.9 mg/dL (0.5-1.3)
[2024-04-04] MEDS: 0.9%NACL 1000ML 1,000 ML IV STA (14:02)
--- NOTE | 2024-04-04 14:55 | HMCIMG ---
CT ABDOMEN/PELVIS W/O CONTRAST HISTORY: Abdominal pain COMPARISON: None TECHNIQUE: Multiple sequential axial images of the abdomen and pelvis were obtained from the dome of the diaphragm through symphysis pubis. Patient was not given contrast through intravenous route. Oral contrast was not given. FINDINGS: No pleural effusion is seen bilaterally. There is no evidence of parenchymal disease or pulmonary nodule of the visualized lower lungs. Degenerative changes of the thoracolumbar spine are present. The heart is not enlarged. The liver, spleen, adrenal glands and pancreas are unremarkable. There is no evidence of hydronephrosis bilaterally. No evidence of renal stone is seen. Fecal material is seen in the colon. There are normal size retroperitoneal and mesenteric lymph nodes. No ascites is seen. No CT evidence of acute appendicitis is seen. Pelvic sidewalls are symmetric bilaterally. Bladder is poorly distended. IMPRESSION: 1. No acute findings. CT was performed with one or more following dose reduction techniques: automated exposure control, adjustment of the mA and kv according to patient's size, or use of a iterative reconstruction technique.
--- NOTE | 2024-04-04 15:04 | ERN ---
ED Note History of Present Illness Stated Complaint: ABDOMINAL PAIN Chief Complaint: Abdominal Pain Time Seen by MD: 11:31 Time Seen by Midlevel: 11:35 Dictation: 58-YEAR-OLD MALE WITH A HISTORY OF PANCREATITIS COMING IN COMPLAINING OF ABDOMINAL PAIN NAUSEA FOR THE LAST 2-3 DAYS. NONBLOODY. PATIENT STATES SHE WAS NOT DRINKING TODAY BUT WAS DRINKING YESTERDAY. PATIENT HAS A HISTORY OF ETOH AND DRUG USE. Allergies: Coded Allergies: No Known Drug Allergies (Unverified Allergy, Unknown, 05/31/21) Home Meds Active Scripts Ibuprofen (Ibuprofen 800 mg Tab) 800 Mg Tab, 800 MG PO Q6H PRN for PAIN for 5 Days, #20 TAB Prov:KATERYNA BLACKMON Jr., MD 08/24/22 [place]-3S/Dha/Epa/Fish Oil (Fish Oil 1,000 mg Softgel) 1 Each Capsule, 1 EACH PO TID for 30 Days, #90 CAP 3 Refills Prov:KATERYNA BLACKMON Jr., MD 08/24/22 Fenofibrate Nanocrystallized (Tricor) 145 Mg Tablet, 145 MG PO DAILY for hypertriglyceridemia for 30 Days, #30 TAB 3 Refills Prov:KATERYNA BLACKMON Jr., MD 08/24/22 Atorvastatin Calcium (LIPITOR) 40 Mg Tablet, 40 MG PO BID for 30 Days, #60 TAB 2 Refills Prov:KATERYNA BLACKMON Jr., MD 08/24/22 Albuterol Sulfate (Proair Digihaler) 90 Mcg Aer.pw.bas, 2 PUFF IH QID, #1 UNIT Prov:EJ PARKS MD 08/14/22 Past Medical History Past Medical History: Anxiety, Pancreatitis Surgical History: None Family History: Negative Social History: Smokers, ETOH, Lives with family, Other Review of System Dictation CONSTITUTIONAL: NEGATIVE FOR FEVER,CHILLS, AND WEIGHT LOSS EYES: NEGATIVE FOR INJURY, PAIN,REDNESS, AND DISCHARGE ENT: NEGATIVE FOR INJURY,PAIN OR SWELLING CARDIOVASCULAR: NEGATIVE FOR CHEST PAIN, PALPITATIONS, AND EDEMA RESPIRATORY: NEGATIVE FOR SHORTNESS OF BREATH, COUGH, AND WHEEZING, ABDOMEN/GI: NEGATIVE FOR ABDOMINAL PAIN, NAUSEA, NO VOMITING, NO DIARRHEA, AND NO CONSTIPATION BACK: NEGATIVE FOR INJURY AND PAIN : NEGATIVE FOR INJURY, BLEEDING AND DISCHARGE MS/EXTREMITY: NEGATIVE FOR INJURY AND DEFORMITY SKIN: NEGATIVE FOR RASH, AND DISCOLORATION NEURO: NEGATIVE FOR HEADACHE, WEAKNESS, NUMBNESS, TINGLING, AND SEIZURE PSYCH: NEGATIVE FOR SUICIDE IDEATION, HOMICIDAL IDEATION, AND HALLUCINATIONS Review of Systems: was completed Initial Vital Sign VS Vital Signs Date Time Temp Pulse Resp B/P (MAP) Pulse Ox O2 Delivery O2 Flow Rate FiO2 04/04/24 11:26 98.8 79 20 165/111 99 Room Air 0 Physical Exam Dictation GENERAL: AWAKE, ALERT, NAD HEAD/FACE: NORMOCEPHALIC, ATRAUMATIC EYES: PERRL, EOMI, VISION AT BASELINE ENT: ORAL CAVITY CLEAR, TMS CLEAR, NO SIGNS OF INFECTION NECK: TRACHEA MIDLINE, SUPPLE, NO NUCHAL RIGIDITY CARDIOVASCULAR: RRR, NORMAL S1/S2, NO MRGS, NO JVD RESPIRATORY: CTAB, NO RESPIRATORY DISTRESS, NO RALES OR WHEEZES ABDOMEN: SOFT, MILD ABDOMINAL TENDERNESS, NON-DISTENDED, NORMAL BOWEL SOUNDS, NO GUARDING OR REBOUND. SKIN: WARM, DRY, NORMAL TURGOR, NO RASH MS/EXTREMITY: PULSES EQUAL, NO CYANOSIS, NEUROVASCULAR INTACT, FROM NEURO: COAX4, GCS 15, STRENGTH 5/5, CN 2-12 INTACT, NORMAL CEREBELLAR EXAM, NORMAL GAIT, PSYCH: NORMAL BEHAVIOR, MOOD, AND AFFECT NORMAL Results (Laboratory/Radiology) Laboratory/Radiology Laboratory Tests Test 04/04/24 11:54 04/04/24 11:59 White Blood Count 10.2 K/uL (4.8-10.8) Red Blood Count 4.35 MIL/uL (4.50-6.20) L Hemoglobin 18.7 g/dL (14.0-18.0) H Hematocrit 41.6 % (42-54) L Mean Corpuscular Volume 95.6 fL (79-99) Mean Corpuscular Hemoglobin 43.0 pg (27.0-33.0) H Mean Corpuscular Hemoglobin Concent 45.0 g/dL (32.0-36.0) H Red Cell Distribution Width 12.8 % (11.0-15.5) Platelet Count 177 K/uL (130-400) Mean Platelet Volume 10.4 fL (7.5-10.5) Immature Granulocyte % (Auto) 0.6 % (0-1) Neutrophils (%) (Auto) 80.7 % (40.0-77.0) H Lymphocytes (%) (Auto) 13.7 % (21.0-51.0) L Monocytes (%) (Auto) 4.4 % (3.0-13.0) Eosinophils (%) (Auto) 0.3 % (0.0-8.0) Basophils (%) (Auto) 0.3 % (0.0-5.0) Neutrophils # (Auto) 8.3 K/uL (1.8-7.7) H Lymphocytes # (Auto) 1.4 K/uL (1.0-4.8) Monocytes # (Auto) 0.5 K/uL (0.1-1.0) Eosinophils # (Auto) 0.03 K/uL (0.00-0.70) Basophils # (Auto) 0.03 K/uL (0.00-0.20) Absolute Immature Granulocyte (auto 0.06 K/uL (0-1) Segmented Neutrophils % 78 % (40-70) H Band Neutrophils % 1 % (0-2) Lymphocytes % (Manual) 14 % (22-44) L Monocytes % (Manual) 5 % (2-9) Eosinophils % (Manual) 1 % (1-6) Basophils % (Manual) 1 % (0-2) Nucleated Red Blood Cells 0.0 % (0.0-0.19) Differential Comment MANUAL DIFFERENTIAL White Cell Morphology Comment TOXIC GRANULATION 2+ Platelet Morphology Comment ADEQUATE Red Blood Cell Morphology ANISO 2+ Sodium Level 116 mmol/L (136-145) L Potassium Level 3.4 mmol/L (3.5-5.1) L Chloride Level 85 mmol/L (101-111) *L Carbon Dioxide Level 21 mmol/L (21-32) Blood Urea Nitrogen 8 mg/dL (7-18) Creatinine 0.9 mg/dL (0.5-1.3) Glomerular Filtration Rate Calc 100 mL/min (>90) Random Glucose 321 mg/dL (70-105) H Total Calcium 8.7 mg/dL (8.5-10.1) Magnesium Level 1.80 mg/dL (1.80-2.40) Total Bilirubin 0.9 mg/dL (0.2-1.0) Direct Bilirubin 0.6 mg/dL (0.0-0.3) H Aspartate Amino Transf (AST/SGOT) 105 U/L (10-37) H Alkaline Phosphatase 169 U/L (50-136) H Total Protein 7.9 g/dL (6.0-8.3) Albumin 3.4 g/dL (3.5-5.0) L Lipase 177 U/L (16-77) H Urine Color YELLOW (YELLOW) Urine Appearance CLEAR (CLEAR) Urine pH 5.5 (5.0-8.0) Urine Specific [place] 1.025 (1.001-1.031) Urine Protein 20 mg/dL (NEGATIVE) H Urine Glucose (UA) NEGATIVE mg/dL (NEGATIVE) Urine Ketones NEGATIVE mg/dL (NEGATIVE) Urine Occult Blood NEGATIVE (NEGATIVE) Urine Nitrate NEGATIVE (NEGATIVE) Urine Bilirubin NEGATIVE mg/dL (NEGATIVE) Urine Urobilinogen 0.2 mg/dL (0.2-1.0) Urine Leukocyte Esterase NEGATIVE Juliane/uL Urine RBC 0-1 /HPF (0-1) Urine WBC 0-1 /HPF (0-1) Urine Bacteria None Seen /HPF (None Seen) Urine Opiates Screen NEGATIVE (NEGATIVE) Urine Barbiturates Screen NEGATIVE (NEGATIVE) Urine Phencyclidine Screen NEGATIVE (NEGATIVE) Urine Amphetamines Screen NEGATIVE (NEGATIVE) Urine Benzodiazepines Screen NEGATIVE (NEGATIVE) Urine Cocaine Screen POSITIVE (NEGATIVE) H Urine Marijuana (THC) Screen NEGATIVE (NEGATIVE) Labs Reviewed?: Yes EKG Comment: DATE:04/04/24 TIME:1231 VENTRICULAR RATE:83 VT INTERVAL:172 QRS DURATION:-56 QT/QTC:359 EKG INTERPRETATION: SINUS RHYTHM, PROBABLE LEFT VENTRICULAR HYPERTROPHY, INFERIOR INFARCT, OLD REVIEWED BY ED ATTENDING NO STEMI INTERPRETED BY ER MD CT Scan Comment: [address] [address] IMAGING REPORT Signed PATIENT: LOLA NICHOLSON MR#: [id number] : 1965 SEX: M AGE: 58 LOCATION: [facility] ORDER 131 STATUS: REG ER REPORT#: [id number] SERVICE 131 REASON: GENERALIZED ABDOMINAL PAIN ORDERING PHYSICIAN: CONY SAAVEDRA NP PROCEDURE: ABD PEL WO - CT ABDOMEN/PELVIS W/O CONTRAST CT ABDOMEN/PELVIS W/O CONTRAST HISTORY: Abdominal pain COMPARISON: None TECHNIQUE: Multiple sequential axial images of the abdomen and pelvis were obtained from the dome of the diaphragm through symphysis pubis. Patient was not given contrast through intravenous route. Oral contrast was not given. FINDINGS: No pleural effusion is seen bilaterally. There is no evidence of parenchymal disease or pulmonary nodule of the visualized lower lungs. Degenerative changes of the thoracolumbar spine are present. The heart is not enlarged. The liver, spleen, adrenal glands and pancreas are unremarkable. There is no evidence of hydronephrosis bilaterally. No evidence of renal stone is seen. Fecal material is seen in the colon. There are normal size retroperitoneal and mesenteric lymph nodes. No ascites is seen. No CT evidence of acute appendicitis is seen. Pelvic sidewalls are symmetric bilaterally. Bladder is poorly distended. IMPRESSION: 1. No acute findings. CT was performed with one or more following dose reduction techniques: automated exposure control, adjustment of the mA and kv according to patient's size, or use of a iterative reconstruction technique. DICTATED BY: CARMEN GALE MD DATE: 04/04/24 1450 ELECTRONICALLY SIGNED BY: CARMEN GALE MD DATE: 04/04/24 1455 ED Course ED Course Orders Procedure Category Date Status Time Cbc With Differential LAB 04/04/24 Complete 11:33 Basic Metabolic Panel LAB 04/04/24 In Process 11:33 Lipase LAB 04/04/24 In Process 11:33 Hepatic Function Panel LAB 04/04/24 In Process 11:33 12 Lead Ekg Tracing- EKG 04/04/24 Complete Technical 11:33 Urinalysis Profile LAB 04/04/24 Complete 11:33 Drug Screen Urine LAB 04/04/24 Complete 11:33 Morphine 2mg Syg PHA 04/04/24 Complete (Morphine 2mg Syg) 11:33 Ondansetron 4mg Inj PHA 04/04/24 Complete (Zofran 4mg Inj) 11:33 Manual Differential LAB 04/04/24 Complete 11:54 Ct Abdomen/Pelvis W/O CT 04/04/24 Resulted Contrast 13:12 0.9%Nacl 1000ml (Ns PHA 04/04/24 In Process 1000ml) 13:49 Potassium Bicarb/Cit PHA 04/04/24 Complete Ac 25meq (K-Lyte Ta 15:23 Insulin Regular, PHA 04/04/24 Complete Human 3ml (Humulin R 15:23 Magnesium LAB 04/04/24 In Process 11:54 Current Medications Medications (Trade) Dose Ordered Sig/Talon Route PRN Reason Start Time Stop Time Status Last Admin Dose Admin Insulin Human Regular (humuLIN R 100 UNIT/ML 3ML) 8 unit ONCE STAT IV 04/04/24 15:23 04/04/24 15:37 DC Morphine Sulfate (morPHINE 2MG SYG) 2 mg ONCE STAT IVP 04/04/24 11:33 04/04/24 11:35 DC 04/04/24 12:23 Ondansetron HCl (zoFRAN 4MG INJ) 4 mg ONCE STAT IVP 04/04/24 11:33 04/04/24 11:35 DC 04/04/24 12:23 Potassium Bicarbonate (K-Lyte Tablet Eff 25 Meq Tablet.eff) 25 meq ONCE STAT PO 04/04/24 15:23 04/04/24 15:37 DC Sodium Chloride 1,000 ml @ 100 mls/hr Q10H STAT IV 04/04/24 13:49 04/04/24 23:48 04/04/24 14:02 Vital Signs Date Time Temp Pulse Resp B/P (MAP) Pulse Ox O2 Delivery O2 Flow Rate FiO2 04/04/24 11:26 98.8 79 20 165/111 99 Room Air 0 Medical Decision Making MDM MDM: 58-YEAR-OLD MALE WITH A HISTORY OF PANCREATITIS COMING IN COMPLAINING OF ABDOMINAL PAIN NAUSEA FOR THE LAST 2-3 DAYS. NONBLOODY. PATIENT STATES SHE WAS NOT DRINKING TODAY BUT WAS DRINKING YESTERDAY. PATIENT HAS A HISTORY OF ETOH AND DRUG USE.CBC SHOWS A LEUKOCYTOSIS, NO ANEMIA, NO THROMBOCYTOPENIA. CHEMISTRY SHOWS HYPONATREMIA AT 1:16 A.M., HYPOKALEMIA AT 3.4, HYPOCHLOREMIA AT 85. GLUCOSE OF 321. LIPASE IS 177. ON PHYSICAL EXAM PATIENT HAS TENDERNESS TO ABDOMINAL AREA, CT SCAN ORDERED TO RULE OUT ACUTE ABDOMEN. CT OF THE ABDOMEN IS NORMAL. AFTER FLUIDS, ANTIEMETIC AND MORPHINE PATIENT STATES SHE STILL HAS NAUSEA AND MILD ABDOMINAL PAIN. PATIENT IS AWAKE ALERT AND ORIENTED X4. DOES NOT HAVE A HEADACHE. SPOKE TO ADMITTING TEAM, OKAY TO ADMIT. DIFFERENTIAL DIAGNOSIS: FALL INTOXICATION, PANCREATITIS, CHOLECYSTITIS, CHOLELITHIASIS RATIONALE: TESTS CONSIDERED AND ORDERED SECONDARY TO SHARED DECISION MAKING INCLUDE: PREVIOUS OUTSIDE RECORDS REVIEWED: OLD ER VISITS. RISK OF COMPLICATION AND/OR MORBIDITY OR MORTALITY OF PATIENT MANAGEMENT: NONE MEDICATIONS-PER MEDICATION RECONCILIATION NEED FOR HOSPITALIZATION: PATIENT DOES NOT MEET CRITERIA FOR HOSPITALIZATION. NEED FOR EMERGENCY MAJOR/MINOR SURGERY: NO THERE ARE NO SOCIAL CONCERNS WITH THIS PATIENT. PRESCRIPTION DRUG MANAGEMENT PRESCRIPTIONS WILL INCLUDE SYMPTOMATIC CARE PATIENT'S PRIOR EXTERNAL MEDICAL RECORDS FROM OTHER ER VISITS WERE REVIEWED BY ME INDICATED. PRIOR TESTING AND RESULTS FROM PREVIOUS VISITS WERE REVIEWED. PRIOR TESTS WERE TAKEN INTO ACCOUNT WITH MEDICAL DECISION MAKING AND RESOURCE UTILIZATION, INDEPENDENT HISTORIAN/HISTORIANS WERE USED TO OBTAIN COMPLETE MEDICAL HISTORY. I INDEPENDENTLY INTERPRETED THE TEST THAT WERE PERFORMED, RESULTS WERE REVIEWED BY ME AND CONSIDERED FINDINGS ON RADIOLOGY IF ORDERED. MEDICAL MANAGEMENT AND EXAMINATION INTERPRETATION DISCUSSIONS WERE HAD BY ME WITH OTHER QUALIFIED HEALTHCARE PROFESSIONALS INDICATED FOR THE PATIENT'S CARE. DX & DISP Disposition: Inpatient Decision to Admit Date: Apr 04, 2024 Decision to Admit Time: 15:47 Departure Impression: Primary Impression: Hyponatremia Additional Impressions: Hypochloremia, Intractable nausea Condition: Stable Referrals: SELF,REFERRAL (PCP) Time of Disposition: 15:48 I have reviewed the case, and I agree with, Diagnosis and Plan CONY SAAVEDRA NP Apr 04, 2024 15:04
[2024-04-04 15:43] LABS: ALBUMIN 3.4 g/dL (3.5-5.0); MAGNESIUM 1.8 mg/dL (1.80-2.40)
[2024-04-04] MEDS ORDERED: PHARMACY COMMUNICATION MISC SCH (16:30)
[2024-04-04] MEDS ORDERED: hydrALAZine 20MG/ML VIAL IV PRN (16:30)
--- NOTE | 2024-04-04 16:36 | HP ---
[facility]ORY [facility] PHYSICAL Date of Service: Apr 04, 2024 Time of Service: 16:11 HISTORY OF PRESENT ILLNESS: [ ] 58 year old male with past medical history of anxiety, pancreatitis, polysubstance abuse, noncompliance presents to the ED with chief complaint of generalized abdominal pain onset about 2-3 days. He reports his last full meal was yesterday evening which consisted of fried chicken. He states he has a good appetite and usually eats five to 6 times a day. Attempted to alleviate his abdominal discomfort by taking stool softeners and laxatives but according to patient he this did not work. He decided to visit the ED due to persistent abdominal pain and distention. On ED presentation patient has an elevated blood pressure of 165/111. CBC is stable with a white count of 10.2 with negative left shift neutrophils 80.7. Sodium is 116, potassium 3.4, chloride 85, glucose 321, LFTs are pending, lipase at 177. CT scan of abdomen and pelvis shows fecal material seen in the colon otherwise no acute findings. ED provider recommended patient be admitted to the medical tele floor with diagnosis of severe hyponatremia, uncontrolled diabetes mellitus type 2 and intractable abdominal pain secondary to chronic pancreatitis. REVIEW OF SYSTEMS: CONSTITUTIONAL: Denies fevers, chills, or night sweats. CARDIOVASCULAR: Denies any chest pain or any palpitations. PULMONARY: Denies any shortness of breath, any cough, or any sputum. SLEEP: Denies morning headaches. Denies daytime somnolence or napping. Denies difficulty falling asleep, staying asleep, waking from sleep. Denies knowledge of snoring. GASTROINTESTINAL: Denies any type of dysphagia to either liquids or solids. Denies coffee-ground emesis, hematemesis, hematochezia, or melanotic stools. Reports nausea, constipation and generalized abdominal pain GENITOURINARY: Denies any frequency, any urgency, or any dysuria. ENDOCRINOLOGIC:Denies polyuria, polydypsia, polyphagia or heat/cold intolerances. HEMATOLOGIC: denies thrombophilia, or bleeding disorders ONCOLOGIC: Denies personal history of malignancy. DERMATOLOGIC: denies rashes or pruritis. NEUROLOGICAL: denies headache, amaurosis fugax or focal weakness. PSYCHIATRIC: Denies any suicidal or homicidal ideation PAST MEDICAL HISTORY: [ ] See H&P PAST SURGICAL HISTORY: [ ] Denies PAST SOCIAL HISTORY: [ ] Denies smoking, reports socially drinks, denies illicit drug use, urine toxicology positive for cocaine FAMILY HISTORY: [ ] Coded Allergies: No Known Drug Allergies (Unverified Allergy, Unknown, 05/31/21) PHYSICAL EXAM GENERAL APPEARANCE: The patient is awake, alert, and oriented, in no acute cardiopulmonary distress. NEUROLOGICAL: Cranial nerves II-XII grossly intact. Motor is 5/5 in bilateral upper and lower extremities proximal to distal. No sensory deficits. HEENT: Face is symmetric. Pupils are equal and reactive. Extraocular movements are intact. NECK: Supple. No JVD. No thyromegaly. No submental, submandibular, pre-/postauricular, occipital or supraclavicular lymphadenopathy. CHEST: Normal chest expansion. No Telemetry. LUNGS: Absence of any rales, rhonchi or any wheezing. CARDIOVASCULAR: Regular. S1 and S2 normal. No appreciable rubs, murmurs or gallops. ABDOMEN: Pain with palpation, distention : Deferred. No [place]. EXTREMITIES: Non-edematous and not cyanotic. No clubbing. Good capillary refill. SKIN: No skin breakdown. Vital Sign (Last 24 Hours) 04/04/24 11:26 Temp 98.8 Pulse 79 Resp 20 B/P (MAP) 165/111 Pulse Ox 99 O2 Delivery Room Air O2 Flow Rate 0 LABS: Laboratory: Test 04/04/24 11:59 04/04/24 11:54 Range/Units Urine Color YELLOW YELLOW Urine Appearance CLEAR CLEAR Urine pH 5.5 5.0-8.0 Urine Specific [place] 1.025 1.001-1.031 Urine Protein 20 H NEGATIVE mg/dL Urine Glucose (UA) NEGATIVE NEGATIVE mg/dL Urine Ketones NEGATIVE NEGATIVE mg/dL Urine Occult Blood NEGATIVE NEGATIVE Urine Nitrate NEGATIVE NEGATIVE Urine Bilirubin NEGATIVE NEGATIVE mg/dL Urine Urobilinogen 0.2 0.2-1.0 mg/dL Urine Leukocyte Esterase NEGATIVE NEGATIVE Juliane/uL Urine RBC 0-1 0-1 /HPF Urine WBC 0-1 0-1 /HPF Urine Bacteria None Seen None Seen /HPF Urine Opiates Screen NEGATIVE NEGATIVE Urine Barbiturates Screen NEGATIVE NEGATIVE Urine Phencyclidine Screen NEGATIVE NEGATIVE Urine Amphetamines Screen NEGATIVE NEGATIVE Urine Benzodiazepines Screen NEGATIVE NEGATIVE Urine Cocaine Screen POSITIVE H NEGATIVE Urine Marijuana (THC) Screen NEGATIVE NEGATIVE White Blood Count 10.2 4.8-10.8 K/uL Red Blood Count 4.35 L 4.50-6.20 MIL/uL Hemoglobin 18.7 H 14.0-18.0 g/dL Hematocrit 41.6 L 42-54 % Mean Corpuscular Volume 95.6 79-99 fL Mean Corpuscular Hemoglobin 43.0 H 27.0-33.0 pg Mean Corpuscular Hemoglobin Concent 45.0 H 32.0-36.0 g/dL Red Cell Distribution Width 12.8 11.0-15.5 % Platelet Count 177 130-400 K/uL Mean Platelet Volume 10.4 7.5-10.5 fL Immature Granulocyte % (Auto) 0.6 0-1 % Neutrophils (%) (Auto) 80.7 H 40.0-77.0 % Lymphocytes (%) (Auto) 13.7 L 21.0-51.0 % Monocytes (%) (Auto) 4.4 3.0-13.0 % Eosinophils (%) (Auto) 0.3 0.0-8.0 % Basophils (%) (Auto) 0.3 0.0-5.0 % Neutrophils # (Auto) 8.3 H 1.8-7.7 K/uL Lymphocytes # (Auto) 1.4 1.0-4.8 K/uL Monocytes # (Auto) 0.5 0.1-1.0 K/uL Eosinophils # (Auto) 0.03 0.00-0.70 K/uL Basophils # (Auto) 0.03 0.00-0.20 K/uL Absolute Immature Granulocyte (auto 0.06 0-1 K/uL Segmented Neutrophils % 78 H 40-70 % Band Neutrophils % 1 0-2 % Lymphocytes % (Manual) 14 L 22-44 % Monocytes % (Manual) 5 2-9 % Eosinophils % (Manual) 1 1-6 % Basophils % (Manual) 1 0-2 % Nucleated Red Blood Cells 0.0 0.0-0.19 % Differential Comment MANUAL DIFFERENTIAL White Cell Morphology Comment TOXIC GRANULATION 2+ Platelet Morphology Comment ADEQUATE Red Blood Cell Morphology ANISO 2+ Sodium Level 116 L 136-145 mmol/L Potassium Level 3.4 L 3.5-5.1 mmol/L Chloride Level 85 *L 101-111 mmol/L Carbon Dioxide Level 21 21-32 mmol/L Blood Urea Nitrogen 8 7-18 mg/dL Creatinine 0.9 0.5-1.3 mg/dL Glomerular Filtration Rate Calc 100 >90 mL/min Random Glucose 321 H 70-105 mg/dL Total Calcium 8.7 8.5-10.1 mg/dL Magnesium Level 1.80 1.80-2.40 mg/dL Total Bilirubin 0.9 0.2-1.0 mg/dL Direct Bilirubin 0.6 H 0.0-0.3 mg/dL Aspartate Amino Transf (AST/SGOT) 105 H 10-37 U/L Alkaline Phosphatase 169 H 50-136 U/L Total Protein 7.9 6.0-8.3 g/dL Albumin 3.4 L 3.5-5.0 g/dL Lipase 177 H 16-77 U/L Current Medications Medications (Trade) Dose Ordered Sig/Talon Route PRN Reason Start Time Stop Time Status Last Admin Dose Admin Insulin Human Regular (humuLIN R 100 UNIT/ML 3ML) 8 unit ONCE STAT IV 04/04/24 15:23 04/04/24 15:37 DC Morphine Sulfate (morPHINE 2MG SYG) 2 mg ONCE STAT IVP 04/04/24 11:33 04/04/24 11:35 DC 04/04/24 12:23 2 MG Ondansetron HCl (zoFRAN 4MG INJ) 4 mg ONCE STAT IVP 04/04/24 11:33 04/04/24 11:35 DC 04/04/24 12:23 4 MG Potassium Bicarbonate (K-Lyte Tablet Eff 25 Meq Tablet.eff) 25 meq ONCE STAT PO 04/04/24 15:23 04/04/24 15:37 DC Sodium Chloride 1,000 ml @ 100 mls/hr Q10H STAT IV 04/04/24 13:49 04/04/24 23:48 04/04/24 14:02 100 MLS/HR DIAGNOSTICS / RADIOLOGY: [ ] ASSESSMENT: Intractable abdominal pain secondary to chronic pancreatitis vs gastroenteritis Severe hyponatremia, POA Uncontrolled hypertension, POA Uncontrolled diabetes mellitus type 2, POA Hyperlipidemia Polysubstance abuse Noncompliance PLAN: Admitted to the medical telemetry floor Keep NPO, bowel rest Continue IV fluid hydration with NS at 75 mL/hr Consulting Nephrology for recommendations Monitor blood pressures Continue hydralazine 10mg IV q6hr Start IV Rocephin 1 gram daily Monitor and replace electrolytes Reviewed CT abdomen/pelvis Fleet enema x1 Monitor a.m. labs PRN Treatment - Add when necessary meds for nausea, vomiting, pain, constipation, insomnia. DVT/GI prophylaxis- Continue SCD and famotidine at current doses. Full CODE STATUS This document was generated in part using voice recognition software, occasional wrong word or sound alike substitutions may have occurred due to the inherent limitations of voice recognition software. Read the chart carefully and recognize using context, where the substitutions have occurred. Although every effort was made to edit the content, store associate and typing errors may occur I have seen and evaluated the patient alongside the nurse practitioner/physician lead dental assistant. I agree with the assessment and plan as above. KEENA KIRKLAND APRN Apr 04, 2024 16:35 CHANA OROSCO IV, MD Apr 05, 2024 11:49
[2024-04-04] MEDS: PoTASSium BIcarbonate/CIT AC 25 MEQ TABLET.EFF PO STA (16:37)
[2024-04-04] MEDS: INSULIN humuLIN R 100 UNIT/ML 3ML IV STA (16:41)
[2024-04-04] MEDS: 0.9%NACL 1000ML 1,000 ML IV SCH (16:47)
[2024-04-04] MEDS: cefTRIAXone 1G VIAL IVPB SCH (16:54)
[2024-04-04] MEDS: INSULIN humuLIN R 100 UNIT/ML 3ML SQ SCH (18:00)
[2024-04-04 18:27] LABS: POTASSIUM 3.4 mmol/L (3.5-5.1)
[2024-04-04] MEDS: ketOROlac 15MG/ML VIAL (15MG/ML) IV PRN (18:30)
--- NOTE | 2024-04-04 20:59 | NUR ---
REPORT GIVEN TO AIDE LIND
[2024-04-04] MEDS: FAMOTIDINE 20MG VIAL IV SCH (21:29)
--- NOTE | 2024-04-04 23:40 | NUR ---
ENEMA INFUSED AT THIS TIME. PT TOLERATED PROCEDURE WELL
[2024-04-05 00:18] VITALS: BP 159/83; PULSE 95; RESP 20; TEMP 98.5
[2024-04-05 02:00] VITALS: O2SAT 97
--- NOTE | 2024-04-05 02:40 | NUR ---
PATIENT STATES HE DOES TAKE ANY HOME MEDICATIONS. Addendum: 04/05/24 at 0241 by AMAURI GARCIA RN RN PT STATES HE DOES NOT TAKE ANY HOME MEDICATIONS.
[2024-04-05] MEDS: SIMETHICONE 80 MG TAB.CHEW PO ONE (03:57)
[2024-04-05 04:00] VITALS: BP 160/82; PULSE 94; RESP 18; TEMP 98.5
--- NOTE | 2024-04-05 04:00 | NUR ---
PAIN Patient with complaints of cramping abdominal pain. Paged Alejandra Whaley np. New order for Simethicone x1.
[2024-04-05] MEDS: ondanSETRON 4MG INJ IVP PRN (04:40)
--- NOTE | 2024-04-05 04:48 | NUR ---
PAIN Patient states severe cramping pain to abdomen. Paged Verna Whaley Np. Okay to give Toradol PRN now.
[2024-04-05 06:08] LABS: BASOPHILS # (AUTO) 0.03 K/uL (0.00-0.20); BASOPHILS % (AUTO) 0.2 % (0.0-5.0); EOSINOPHILS # (AUTO) 0.06 K/uL (0.00-0.70); EOSINOPHILS % (AUTO) 0.5 % (0.0-8.0); HEMATOCRIT 38.3 % (42-54); IMMATURE GRANULOCYTE ABSOLUTE 0.08 K/uL (0-1); MEAN CORPUSCULAR HEMOGLOBIN 38.2 pg (27.0-33.0); MEAN CORPUSCULAR HGB CONC 39.9 g/dL (32.0-36.0); MEAN CORPUSCULAR VOLUME 95.5 fL (79-99); MONOCYTES # (AUTO) 0.7 K/uL (0.1-1.0); MONOCYTES % (AUTO) 5.3 % (3.0-13.0); NEUTROPHILS # (AUTO) 10.6 K/uL (1.8-7.7); NEUTROPHILS % (AUTO) 85.4 % (40.0-77.0); PLATELET COUNT (AUTO) 155 K/uL (130-400); RED BLOOD CELL COUNT(AUTO) 4.01 MIL/uL (4.50-6.20); WHITE BLOOD COUNT (AUTO) 12.4 K/uL (4.8-10.8)
[2024-04-05 06:28] LABS: BILIRUBIN,TOTAL 1.8 mg/dL (0.2-1.0); MAGNESIUM 1.7 mg/dL (1.80-2.40); PHOSPHORUS 1.9 mg/dL (2.5-4.9); POTASSIUM 3.7 mmol/L (3.5-5.1); THYROID STIMULATING HORMONE 1.34 uIU/mL (0.36-3.74)
[2024-04-05 07:57] LABS: TOTAL PROTEIN, SERUM 7.4 g/dL (6.0-8.3); URIC ACID 8.4 mg/dL (2.6-7.2)
[2024-04-05] MEDS: THIAMINE HCL 100 MG/ML 2ML VIAL IV SCH (08:29)
[2024-04-05] MEDS: MAGNESIUM 2GM PREMIX 50ML 50 ML IV PRN (08:30)
[2024-04-05 08:40] VITALS: TEMP 98.7
[2024-04-05 08:51] LABS: CREATININE 0.8 mg/dL (0.5-1.3)
--- NOTE | 2024-04-05 09:14 | PN ---
[facility] PROGRESS NOTE Date of Service: Apr 05, 2024 Time of Service: 09:13 SUBJECTIVE: [ ] REVIEW OF SYSTEMS: CONSTITUTIONAL: Denies fevers, chills, or night sweats. CARDIOVASCULAR: Denies any chest pain or any palpitations. PULMONARY: Denies any shortness of breath, any cough, or any sputum. SLEEP: Denies morning headaches. Denies daytime somnolence or napping. Denies difficulty falling asleep, staying asleep, waking from sleep. Denies knowledge of snoring. GASTROINTESTINAL: Denies any type of dysphagia to either liquids or solids. Denies coffee-ground emesis, hematemesis, hematochezia, or melanotic stools. Reports nausea, constipation and generalized abdominal pain GENITOURINARY: Denies any frequency, any urgency, or any dysuria. ENDOCRINOLOGIC:Denies polyuria, polydypsia, polyphagia or heat/cold intolerances. HEMATOLOGIC: denies thrombophilia, or bleeding disorders ONCOLOGIC: Denies personal history of malignancy. DERMATOLOGIC: denies rashes or pruritis. NEUROLOGICAL: denies headache, amaurosis fugax or focal weakness. PSYCHIATRIC: Denies any suicidal or homicidal ideation PHYSICAL EXAM GENERAL APPEARANCE: The patient is awake, alert, and oriented, in no acute cardiopulmonary distress. NEUROLOGICAL: Cranial nerves II-XII grossly intact. Motor is 5/5 in bilateral upper and lower extremities proximal to distal. No sensory deficits. HEENT: Face is symmetric. Pupils are equal and reactive. Extraocular movements are intact. NECK: Supple. No JVD. No thyromegaly. No submental, submandibular, pre- /postauricular, occipital or supraclavicular lymphadenopathy. CHEST: Normal chest expansion. No Telemetry. LUNGS: Absence of any rales, rhonchi or any wheezing. CARDIOVASCULAR: Regular. S1 and S2 normal. No appreciable rubs, murmurs or gallops. ABDOMEN: Pain with palpation, distention : Deferred. No [place]. EXTREMITIES: Non-edematous and not cyanotic. No clubbing. Good capillary refill. SKIN: No skin breakdown. Vital Signs (last 8hr) Date Time Temp Pulse Resp B/P (MAP) Pulse Ox O2 Delivery O2 Flow Rate FiO2 04/05/24 08:40 98.8 89 16 156/81 99 Room Air* 0 21 04/05/24 04:00 98.4 94 18 160/82 97 Room Air 04/05/24 02:00 97 Room Air* 0 21 LABS: Laboratory: Test 04/05/24 05:53 04/05/24 00:10 04/04/24 11:59 04/04/24 11:54 Range/Units White Blood Count 12.4 H 4.8-10.8 K/uL Red Blood Count 4.01 L 4.50-6.20 MIL/uL Hemoglobin 15.3 14.0-18.0 g/dL Hematocrit 38.3 L 42-54 % Mean Corpuscular Volume 95.5 79-99 fL Mean Corpuscular Hemoglobin 38.2 H 27.0-33.0 pg Mean Corpuscular Hemoglobin Concent 39.9 H 32.0-36.0 g/dL Red Cell Distribution Width 13.0 11.0-15.5 % Platelet Count 155 130-400 K/uL Mean Platelet Volume 10.1 7.5-10.5 fL Immature Granulocyte % (Auto) 0.6 0-1 % Neutrophils (%) (Auto) 85.4 H 40.0-77.0 % Lymphocytes (%) (Auto) 8.0 L 21.0-51.0 % Monocytes (%) (Auto) 5.3 3.0-13.0 % Eosinophils (%) (Auto) 0.5 0.0-8.0 % Basophils (%) (Auto) 0.2 0.0-5.0 % Neutrophils # (Auto) 10.6 H 1.8-7.7 K/uL Lymphocytes # (Auto) 1.0 1.0-4.8 K/uL Monocytes # (Auto) 0.7 0.1-1.0 K/uL Eosinophils # (Auto) 0.06 0.00-0.70 K/uL Basophils # (Auto) 0.03 0.00-0.20 K/uL Absolute Immature Granulocyte (auto 0.08 0-1 K/uL Nucleated Red Blood Cells 0.0 0.0-0.19 % Sodium Level 128 L 136-145 mmol/L Potassium Level 3.7 3.5-5.1 mmol/L Chloride Level 96 L 101-111 mmol/L Carbon Dioxide Level 21 21-32 mmol/L Blood Urea Nitrogen 11 7-18 mg/dL Creatinine 0.8 0.5-1.3 mg/dL Glomerular Filtration Rate Calc 104 >90 mL/min Random Glucose 244 H 70-105 mg/dL Uric Acid 8.4 H 2.6-7.2 mg/dL Total Calcium 6.1 L 8.5-10.1 mg/dL Phosphorus Level 1.9 L 2.5-4.9 mg/dL Magnesium Level 1.70 L 1.80-2.40 mg/dL Total Bilirubin 1.8 #H 0.2-1.0 mg/dL Aspartate Amino Transf (AST/SGOT) 54 H 10-37 U/L Alanine Aminotransferase (ALT/SGPT) 64 # 12-78 U/L Alkaline Phosphatase 114 # 50-136 U/L Total Protein 7.4 6.0-8.3 g/dL Albumin 3.0 L 3.5-5.0 g/dL Lipase 239 H 16-77 U/L Thyroid Stimulating Hormone (TSH) 1.34 0.36-3.74 uIU/mL Whole Blood Glucose 131 H 70-110 MG/DL Urine Color YELLOW YELLOW Urine Appearance CLEAR CLEAR Urine pH 5.5 5.0-8.0 Urine Specific [place] 1.025 1.001-1.031 Urine Protein 20 H NEGATIVE mg/dL Urine Glucose (UA) NEGATIVE NEGATIVE mg/dL Urine Ketones NEGATIVE NEGATIVE mg/dL Urine Occult Blood NEGATIVE NEGATIVE Urine Nitrate NEGATIVE NEGATIVE Urine Bilirubin NEGATIVE NEGATIVE mg/dL Urine Urobilinogen 0.2 0.2-1.0 mg/dL Urine Leukocyte Esterase NEGATIVE NEGATIVE Juliane/uL Urine RBC 0-1 0-1 /HPF Urine WBC 0-1 0-1 /HPF Urine Bacteria None Seen None Seen /HPF Urine Opiates Screen NEGATIVE NEGATIVE Urine Barbiturates Screen NEGATIVE NEGATIVE Urine Phencyclidine Screen NEGATIVE NEGATIVE Urine Amphetamines Screen NEGATIVE NEGATIVE Urine Benzodiazepines Screen NEGATIVE NEGATIVE Urine Cocaine Screen POSITIVE H NEGATIVE Urine Marijuana (THC) Screen NEGATIVE NEGATIVE Segmented Neutrophils % 78 H 40-70 % Band Neutrophils % 1 0-2 % Lymphocytes % (Manual) 14 L 22-44 % Monocytes % (Manual) 5 2-9 % Eosinophils % (Manual) 1 1-6 % Basophils % (Manual) 1 0-2 % Differential Comment MANUAL DIFFERENTIAL White Cell Morphology Comment TOXIC GRANULATION 2+ Platelet Morphology Comment ADEQUATE Red Blood Cell Morphology ANISO 2+ Direct Bilirubin 0.6 H 0.0-0.3 mg/dL Current Medications Medications (Trade) Dose Ordered Sig/[place] Route PRN Reason Start Time Stop Time Status Last Admin Dose Admin Ceftriaxone Sodium (ROCEphine 1G INJ) 1 gm Q24H IVPB 04/04/24 16:30 04/14/24 16:29 04/04/24 16:54 1 GM Famotidine (Pepcid 20mg Vial) 20 mg BID IV 04/04/24 21:00 05/04/24 20:59 04/05/24 08:30 20 MG Hydralazine HCl (APRESOLine 20MG INJ) 10 mg Q6H PRN IV ADMINISTER FOR SBP > 160 04/04/24 16:30 05/04/24 16:29 Insulin Human Regular (humuLIN R 100 UNIT/ML 3ML) 8 unit ONCE STAT IV 04/04/24 15:23 04/04/24 15:37 DC 04/04/24 16:41 8 UNIT Insulin Human Regular (humuLIN R 100 UNIT/ML 3ML) INSULIN SLIDING SCAL... Q6H6 SQ 04/04/24 18:00 05/04/24 17:59 Ketorolac Tromethamine (toRADol) 15 mg Q6H PRN IV MODERATE PAIN (4-6) 04/04/24 16:30 04/09/24 16:29 04/05/24 04:51 15 MG Magnesium Sulfate 50 ml @ 0 mls/hr PROTOCOL PRN IV MAGNESIUM PROTOCOL 04/05/24 08:30 05/05/24 08:29 04/05/24 08:30 25 MLS/HR Morphine Sulfate (morPHINE 2MG SYG) 2 mg ONCE STAT IVP 04/04/24 11:33 04/04/24 11:35 DC 04/04/24 12:23 2 MG Ondansetron HCl (zoFRAN 4MG INJ) 4 mg ONCE STAT IVP 04/04/24 11:33 04/04/24 11:35 DC 04/04/24 12:23 4 MG Ondansetron HCl (zoFRAN 4MG INJ) 4 mg Q12H PRN IVP NAUSEA/VOMITING 04/04/24 16:30 05/04/24 16:29 04/05/24 04:40 4 MG Pharmacy Profile Note (Pharmacy Communication) 1 each ONCE MISC 04/04/24 16:30 04/04/24 16:56 DC Potassium Bicarbonate (K-Lyte Tablet Eff 25 Meq Tablet.eff) 25 meq ONCE STAT PO 04/04/24 15:23 04/04/24 15:37 DC 04/04/24 16:37 25 MEQ Sodium Chloride 1,000 ml @ 75 mls/hr [id number] IV 04/04/24 16:30 05/04/24 16:29 04/04/24 16:47 75 MLS/HR Sodium Chloride 1,000 ml @ 100 mls/hr Q10H STAT IV 04/04/24 13:49 04/04/24 23:48 DC 04/04/24 14:02 100 MLS/HR Thiamine HCl (Vitamin B-1) 100 mg DAILY IV 04/05/24 09:00 05/05/24 08:59 04/05/24 08:29 100 MG DIAGNOSTICS / RADIOLOGY: [ ] ASSESSMENT: Intractable abdominal pain secondary to chronic pancreatitis vs gastroenteritis Severe hyponatremia, POA Uncontrolled hypertension, POA Uncontrolled diabetes mellitus type 2, POA Hyperlipidemia Polysubstance abuse Noncompliance PLAN: Admitted to the medical telemetry floor Keep NPO, bowel rest Continue IV fluid hydration with NS at 75 mL/hr Consulting Nephrology for recommendations Monitor blood pressures Continue hydralazine 10mg IV q6hr Start IV Rocephin 1 gram daily Monitor and replace electrolytes Reviewed CT abdomen/pelvis Fleet enema x1 Monitor a.m. labs PRN Treatment - Add when necessary meds for nausea, vomiting, pain, co nstipation, insomnia. DVT/GI prophylaxis- Continue SCD and famotidine at current doses. Full CODE STATUS This document was generated in part using voice recognition software, occasional wrong word or sound alike substitutions may have occurred due to the inherent limitations of voice recognition software. Read the chart carefully and recognize using context, where the substitutions have occurred. Although every effort was made to edit the content, laser systems engineer and typing errors may occur KEENA KIRKLAND APRN Apr 05, 2024 09:14
[2024-04-05] MEDS ORDERED: 0.9%NACL 50ML IV SCH (09:30)
[2024-04-05] MEDS: ZOSYN 3.375GM +NS 50ML IVPB SCH (10:08)
--- NOTE | 2024-04-05 10:23 | HMCIMG ---
ABD 1VW HISTORY: Constipation COMPARISON: None FINDINGS: A frontal projection of the abdomen was obtained. Mild small bowel dilatation is seen. Fecal material is seen in the colon. Degenerative changes of the thoracolumbar spine are noted. IMPRESSION: 1. Mild small bowel dilatation.
[2024-04-05] MEDS ORDERED: metoCLOPRAmide 10 MG/2 ML VIAL IVP SCH (11:30)
--- NOTE | 2024-04-05 11:32 | CONS ---
REASON FOR CONSULTATION: Hyponatremia and other comorbidities. HISTORY OF PRESENT ILLNESS: A 58-year-old gentleman with history of pancreatitis, polysubstance abuse, and anxiety. The patient has abdominal pain. The patient has very low sodium, low potassium and we have been consulted. The patient has been to have some constipation also. The patient has underlying diabetes with elevated sugars and severe abdominal pain. PAST MEDICAL HISTORY: As above, with hypertension, diabetes, pancreatitis, polysubstance abuse, anxiety and other comorbidities as above. PAST SURGICAL HISTORY: Denied. SOCIAL HISTORY: The patient has alcohol abuse reported. No smoking reported. FAMILY HISTORY: Unremarkable for present contacts. ALLERGIES: No allergies. REVIEW OF SYSTEMS: CONSTITUTIONAL: Weakness. No fever, chills, or rigors. HEENT: With no headache, oral ulcers, sore throat, or difficulty swallowing. No new vision complaint. RESPIRATORY: Has no cough, expectoration, hemoptysis, or pleuritic pain. CARDIOVASCULAR: No orthopnea or PND. GASTROINTESTINAL: Positive for abdominal pain, no nausea or vomiting. GENITOURINARY: Negative for dysuria or hematuria. DERMATOLOGICAL: No rashes, pruritus, or skin lesion. ENDOCRINE: No polyuria, polydipsia, or polyphagia. PSYCHIATRIC: Negative for anxiety, depression, or hallucinations. LYMPHATIC AND HEMATOPOIETIC: No bleeding tendencies or swelling noted. NEUROLOGIC: No seizure, syncope, or stroke. PSYCHIATRIC: Positive for anxiety. No depression and a history of alcohol abuse reported. PHYSICAL EXAMINATION: GENERAL: Pale, no other distress or deformities, lying in bed. VITAL SIGNS: Blood pressure is around 151/95, pulse 76, respiratory rate 20, afebrile. HEENT: Head is atraumatic, normocephalic. Pupils are round and reactive. Sclerae are anicteric. Conjunctivae are not pale. Oral mucosa is not dry. NECK: Without masses or bruits. Thyroid is palpable. Neck has no bruits. CHEST: Shows equal thoracic percussion note being resonant in all areas. CARDIAC: Regular rhythm. No rub, no S3 or S4. No parasternal heave. Apical beat is not localized. ABDOMEN: With no guarding or tenderness. Bowel sounds are normoactive. No free fluid. EXTREMITIES: With no edema and no cyanosis or clubbing. BACK: No tenderness or back deformities. LYMPHATIC: With no lymph node swelling in neck or axillary area. NEUROLOGIC: Unchanged. LABORATORY DATA: Labs have been reviewed. Very low sodium. Hemoglobin is 18.7. Potassium has been low. LFTs are deranged. Old records reviewed and imaging studies are personally reviewed. A CT abdomen done with no acute finding stools. I personally reviewed it. PROBLEMS: Include: * Severe hyponatremia. * Alcohol abuse. * The patient has polysubstance abuse. * Anxiety. * Underlying diabetes. * Underlying abdominal pain. * Underlying hypertension. * Underlying hyperlipidemia and history of noncompliance. PLAN: Suggestions will be, * The patient is being admitted. * We will get urine electrolytes. * Urine osmolality. * Serum osmolality. * TSH and uric acid. * No need for hypertonic saline. * I will suggest thiamine replacement as needed. * Relieve constipation. * Follow up on sodium level frequently. * IV Dilaudid can be used for pain. * Insulin coverage. Part of the hyponatremia related to hyperglycemia. The patient will be on other supportive measure. Intake, output, weight and overall status to be monitored. Nonsteroidal drugs to be avoided. Dose of medicine to be adjusted. I have discussed with other team physician. We have reviewed the external records, previous records. We have ordered the followup labs and x-rays and we have reviewed all the labs and x-rays personally. Condition is critical and guarded. I thank you for this patient. TID: [id number] RECEIPT: [id number]
--- NOTE | 2024-04-05 11:42 | NUR ---
PT WANTING TO LEAVE AMA. VINITA BRINK AT BEDSIDE. EXPLAINED RISKS TO PT. AMA FORM SIGNED AND IN PT CHART.
[2024-04-05 11:44] VITALS: BP 162/91; PULSE 89; RESP 18; O2SAT 98
--- NOTE | 2024-04-05 12:18 | DS ---
Discharge Summary Hospital Course Summary: This is a 58-year-old male with a past medical history of anxiety, pancreatitis, essential hypertension, hyperlipidemia, polysubstance abuse and medical noncompliance who was admitted yesterday with diagnosis of intractable abdominal pain secondary to chronic pancreatitis versus gastroenteritis, severe hyp onatremia, uncontrolled diabetes mellitus type 2 and hypertension. Patient was kept NPO. Continued on IV fluids. patient remained NPO this morning, continued IV fluids. Continued on IV Rocephin. decided to leave against medical advice. Assessment/Plan: ASSESSMENT: Intractable abdominal pain secondary to chronic pancreatitis vs gastroenteritis Severe hyponatremia, POA Uncontrolled hypertension, POA Uncontrolled diabetes mellitus type 2, POA Hyperlipidemia Polysubstance abuse Noncompliance PLAN: Admitted to the medical telemetry floor Keep NPO, bowel rest Continue IV fluid hydration with NS at 75 mL/hr Consulting Nephrology for recommendations Monitor blood pressures Continue hydralazine 10mg IV q6hr Start IV Rocephin 1 gram daily Monitor and replace electrolytes Reviewed CT abdomen/pelvis Fleet enema x1 Monitor a.m. labs PRN Treatment - Add when necessary meds for nausea, vomiting, pain, constipation, insomnia. DVT/GI prophylaxis- Continue SCD and famotidine at current doses. Full CODE STATUS This document was generated in part using voice recognition software, occasional wrong word or sound alike substitutions may have occurred due to the inherent limitations of voice recognition software. Read the chart carefully and recognize using context, where the substitutions have occurred. Although every effort was made to edit the content, development mgr and typing errors may occur Discharge Instructions: Left against medical advice Home Medications: Active Scripts Ibuprofen (Ibuprofen 800 mg Tab) 800 Mg Tab, 800 MG PO Q6H PRN for PAIN for 5 Days, #20 TAB Prov:KATERYNA BLACKMON Jr., MD 08/24/22 [place]-3S/Dha/Epa/Fish Oil (Fish Oil 1,000 mg Softgel) 1 Each Capsule, 1 EACH PO TID for 30 Days, #90 CAP 3 Refills Prov:KATERYNA BLACKMON Jr., MD 08/24/22 Fenofibrate Nanocrystallized (Tricor) 145 Mg Tablet, 145 MG PO DAILY for hypertriglyceridemia for 30 Days, #30 TAB 3 Refills Prov:KATERYNA BLACKMON Jr., MD 08/24/22 Atorvastatin Calcium (LIPITOR) 40 Mg Tablet, 40 MG PO BID for 30 Days, #60 TAB 2 Refills Prov:KATERYNA BLACKMON Jr., MD 08/24/22 Albuterol Sulfate (Proair Digihaler) 90 Mcg Aer.pw.bas, 2 PUFF IH QID, #1 UNIT Prov:EJ PARKS MD 08/14/22 Time spent arranging discharge: 31-60 minutes KEENA KIRKLAND APRN Apr 05, 2024 12:18
--- NOTE | 2024-04-05 23:27 | PN ---
SUBJECTIVE: This patient has anemia. This patient has hyponatremia. He has polysubstance abuse. The patient is weak. He has some leukocytosis. He has hypokalemia also. He has slightly elevated creatinine up to 1 and has impaired LFTs. All the other systemic review is unchanged. The patient is planning to sign AMA. Other systemic review is unchanged. The patient has abdominal pain, pancreatitis, gastroenteritis, hypertension, diabetes, hyperlipidemia and noncompliance. The patient is signing AMA. The patient has no other associated symptoms. Sodium remains low and the other systemic review is unchanged. The patient has hyperlipidemia. PHYSICAL EXAMINATION: GENERAL: Pale, no other distress. VITAL SIGNS: Blood pressure is 160/82, pulse 94, respiratory rate is 18, afebrile. HEENT: Head is atraumatic. Pupils are round and reactive. Sclerae anicteric. Conjunctivae not pale. Oral mucosa is not dry. NECK: Supple. No masses or bruits. Thyroid is palpable. Neck has no bruits. LABORATORY DATA: We have reviewed available labs in detail and labs have shown low ____ sodium of 128. Imaging studies are reviewed. LFTs are ____. PROBLEMS: Hyponatremia, LFT derangement, polysubstance abuse, pancreatitis and history of alcohol abuse. PLAN: Fluid restriction. No need for hypertonic saline. The patient is signing AMA. Has been advised against nonsteroidal drug abuse as well as use of alcohol and we will continue monitoring. Condition remained critical and guarded. Thank you for this patient. TID: [id number] RECEIPT: [id number]
== END 2024-04-05 11:40 | disposition left against medical advice (07) | DRG 392 ==
LOC: EDH 11:25 → EDHIP 11:26 → UNDOADMIN 15:48 → EDHIP 15:48
PROVIDERS: ADMIT Internal Medicine; ATTEND Internal Medicine
DX: K52.9 Noninfective gastroenteritis and colitis, unspecified (principal); K86.1 Other chronic pancreatitis; E87.1 Hypo-osmolality and hyponatremia; D64.9 Anemia, unspecified; E11.65 Type 2 diabetes mellitus with hyperglycemia; E78.5 Hyperlipidemia, unspecified; E87.6 Hypokalemia; I10 Essential (primary) hypertension; K59.00 Constipation, unspecified; F41.9 Anxiety disorder, unspecified; G47.00 Insomnia, unspecified; Z91.199 Patient's noncompliance with other medical treatment and regimen due to unspecified reason
CPT/HCPCS: 36415; 74018; 74176; 80048; 80053; 80076; 80305; 81001; 82533; 82948; 83036; 83690; 83735; 84100; 84443; 84550; 85025; 87040; 93005; 96361; 96374; 96375; 99285; G0378; J0696; J1815; J1885; J2270; J2405; J2543; J3411; J3475; J3490; J7030